=== PATIENT | female | born 1965 | race Caucasian/White ===

== ENCOUNTER 2019-03-19 14:41 | Emergency (ER) | payer SELFPAY ==
[2019-03-19 15:08] VITALS: BP 133/86; PULSE 89; RESP 20; TEMP 36.8; O2SAT 99
--- NOTE | 2019-03-19 15:26 | ED.NAVMDI ---
HPI - Nausea/Vomiting/Diarrhea General Chief complaint: Nausea/Vomiting/Diarrhea Stated complaint: abd pain/Nausea/Vomiting Time Seen by Provider: 03/19/19 15:26 Source: patient Mode of arrival: ambulatory Limitations: no limitations History of Present Illness HPI Narrative: Patient presents with nausea that started last night. Patient states she had emesis last night and 1 today. Denies one episode of diarrhea. Patient also reports generalized abdominal pain. Patient staes she is able to tolerate po liquids well. no blood in emesis or stool. Patient states she missed work today due to the nausea and needs a work note. MD elicited complaint: nausea, vomiting and diarrhea Onset (ago): day(s) Description of vomiting: watery Description of diarrhea: semi-solid Associated nausea: No Associated abdominal pain: No Related Data Home Medications Medication Instructions Recorded Confirmed pantoprazole 40 mg PO BID 03/19/19 03/19/19 Allergies Allergy/AdvReac Type Severity Reaction Status Date / Time amoxicillin Allergy Intermediate rash Verified 03/19/19 15:19 Review of Systems Review of Systems: Narrative: CONSTITUTIONAL: Denies fever, chills, or sweats. EYES: Denies visual changes, redness, or discharge. ENT: Denies rhinorrhea, congestion, sore throat, or otalgia. CARDIOVASCULAR: Denies chest pain, palpitations, or edema. RESPIRATORY: Denies cough or dyspnea. GASTROINTESTINAL:reports generalized abdominal pain, nausea, vomiting, or diarrhea. GENITOURINARY: Denies dysuria or hematuria. SKIN: Denies rash or itching. MUSCULOSKELETAL: Denies back pain, joint pain, or myalgia. NEUROLOGIC: Denies headache, numbness, or weakness. PSYCHIATRIC: Denies anxiety or depression. PMFSH Social History Social History Smoking status: Never smoker Gender identity (if verbalized by the patient): Female Comments At time of signature, agree with nursing past medical, surgical, social and family history. There is no relevant family history pertinent to the presenting complaint Exam Narrative: Exam Narrative: GENERAL: Well-appearing, well-nourished, and in no acute distress. HEAD: Normocephalic, atraumatic. EYES: PERRLA and EOMI. ENT: Nares clear, no rhinorrhea or epistaxis. Mucous membranes moist. NECK: Supple. CHEST: Clear to auscultation. No respiratory distress. HEART: Regular rate and rhythm. No murmur heard. Normal peripheral pulses. ABDOMEN: Soft, nontender, nondistended, normal active bowel sounds. EXTREMITIES: Normal range of motion. No edema. SKIN: Warm, dry, no rash. NEURO: No focal deficits. Alert and oriented x3. [place] Coma Scale Eye Opening: Spontaneous 4 [place] Coma Scale Motor: Obeys Commands 6 [place] Coma Scale Verbal: Oriented 5 [place] Coma Scale Total 15 Course Vital Signs Vital signs: Vital Signs Temperature 36.8 C 03/19/19 15:08 Pulse Rate 89 03/19/19 15:08 Respiratory Rate 20 03/19/19 15:08 Blood Pressure 133/86 03/19/19 15:08 Pulse Oximetry 99 03/19/19 15:08 Temperature 36.8 C 03/19/19 15:08 Pulse Rate 89 03/19/19 15:08 Respiratory Rate 03/19/19 15:08 Blood Pressure 133/86 03/19/19 15:08 Pulse Oximetry 99 03/19/19 15:08 Please NAI schedule a followup visit with your personal physician for further evaluation and treatment. Including recheck and discussion of your blood pressure. If your symptoms persist, change or worsen significantly before you can contact your personal physician then please, without delay, go to the emergency department for further evaluation states feels much better after zofran able to tolerate po liquids well and is ready to go home. MDM - Nausea/Vomiting/Diarrhea Differential Diagnosis Differential diagnosis: Likely traveler's diarrhea, food poisoning and gastroenteritis Critical Care Time Critical Care Time Critical Care Time: No Discharge Plan Discharge Clinical Impressi
== END 2019-03-19 15:55 | disposition home or self-care (01) ==
PROVIDERS: Emergency Provider Nurse Practitioner Family
DX: K52.9 Noninfective gastroenteritis and colitis, unspecified (principal); R11.2 Nausea with vomiting, unspecified
CPT/HCPCS: 99213; G0463

== ENCOUNTER 2019-03-21 12:00 | Emergency (ER) | payer SELFPAY ==
[2019-03-21 12:09] VITALS: BP 149/88; PULSE 72; RESP 14; TEMP 36.6; O2SAT 100
--- NOTE | 2019-03-21 12:14 | ED.WOUNDLAC ---
HPI - Wound/Laceration General Chief Complaint: Wound/Laceration Stated Complaint: finger lac Time Seen by Provider: 03/21/19 12:14 Source: patient and RN notes reviewed History of Present Illness HPI narrative: Patient is a 53-year-old female presents the urgent care with complaints of a laceration to the right finger. Patient states that it occurred approximately 30 to 40 minutes ago. Patient states that she had it on a metal [place] on her trailer. Patient states that she does need a tetanus shot. No other acute complaints. No acute distress noted. Patient had a plan of care. Related Data Home Medications Medication Instructions Recorded Confirmed pantoprazole 40 mg PO BID 03/19/19 03/21/19 Allergies Allergy/AdvReac Type Severity Reaction Status Date / Time amoxicillin Allergy Intermediate rash Verified 03/21/19 12:15 Review of Systems Review of Systems: Narrative: CONSTITUTIONAL: Denies fever, chills, or sweats. EYES: Denies visual changes, redness, or discharge. ENT: Denies rhinorrhea, congestion, sore throat, or otalgia. CARDIOVASCULAR: Denies chest pain, palpitations, or edema. RESPIRATORY: Denies cough or dyspnea. GASTROINTESTINAL: Denies abdominal pain, nausea, vomiting, or diarrhea. GENITOURINARY: Denies dysuria or hematuria. SKIN: Reports of a laceration to the right index finger MUSCULOSKELETAL: Denies back pain, joint pain, or myalgia. NEUROLOGIC: Denies headache, numbness, or weakness. PMFSH Social History Social History Smoking status: Never smoker Gender identity (if verbalized by the patient): Female Comments At the time of my signature, I reviewed and agree with the nursing past medical, surgical, social, and family history. There is no relevant family history pertinent to the patient complaint. Exam Narrative: Exam Narrative: GENERAL: This is a well-nourished, well-developed patient, in no apparent distress. HEAD: normocephalic, atraumatic. EYES: PERRL. Sclera clear/white. Vision is grossly intact. EARS: External ears normal NOSE: External nose normal with no obvious nasal discharge THROAT: Mucous membranes moist NECK: Neck supple CARDIOVASCULAR: Regular rate and rhythm SKIN: 1 cm linear laceration to the distal end of the dorsal aspect of the right index finger. Warm, intact with no suspicious lesions or rash, good texture and turgor. NEURO: awake, alert, and oriented to person, place and time. There were no obvious focal neurologic abnormalities. EXTREMITIES: No clubbing, cyanosis, or edema. Upper right extremity capillary refill less than 2 seconds. Course Vital Signs Vital signs: Vital Signs Temperature 98 F 03/21/19 12:09 Pulse Rate 72 03/21/19 12:09 Respiratory Rate 14 03/21/19 12:09 Blood Pressure 149/88 H 03/21/19 12:09 Pulse Oximetry 100 03/21/19 12:09 Temperature 98 F 03/21/19 12:09 Pulse Rate 72 03/21/19 12:09 Respiratory Rate 14 03/21/19 12:09 Blood Pressure 149/88 H 03/21/19 12:09 Pulse Oximetry 100 03/21/19 12:09 Reviewed?patient is informed that they may have pre-hypertension or hypertension based on a blood pressure reading in the department. I recommend the patient call the primary care provider listed on their discharge instructions or a physician of their choice this week to arrange follow-up for further evaluation of possible pre-hypertension or hypertension. Procedures Laceration Laceration 1: Site: upper extremity Side (If applicable): right (Right index finger) Description: linear ====== Skin Level ====== Skin layer closed with: dermabond and steri strips ====== Subcutaneous Layer ====== ====== Muscle Layer ====== ====== Tendon Layer ====== Dressing: Wound cleansed with [employer] and normal saline. Dermabond placed over the laceration. And Steri-Strips. MDM - Wound/Laceration MDM Narrative Medical decision
[2019-03-21] MEDS: TETANUS,DIPHTHERIA,AC PERTUSSIS ADULT 0.5 ML (ADACEL) IM (12:24)
== END 2019-03-21 12:44 | disposition home or self-care (01) ==
PROVIDERS: Emergency Provider Nurse Practitioner Family
DX: S61.210A Laceration without foreign body of right index finger without damage to nail, initial encounter (principal); W22.8XXA Striking against or struck by other objects, initial encounter; Z23 Encounter for immunization
CPT/HCPCS: 12001; 90471; 90715; 99212; G0463

== ENCOUNTER 2019-04-17 09:31 | Emergency (ER) | payer SELFPAY ==
[2019-04-17 09:43] VITALS: BP 136/78; PULSE 70; RESP 16; TEMP 37.4; O2SAT 99
--- NOTE | 2019-04-17 11:00 | ED.SKABFB ---
HPI - Skin/Abscess/Foreign Bdy General Chief complaint: Skin/Abscess/Foreign Body Stated complaint: breaking out all over Time Seen by Provider: 04/17/19 11:00 Source: patient and RN notes reviewed Mode of arrival: ambulatory Limitations: no limitations History of Present Illness HPI narrative: 53 year old female who presents to express care with complaint of noting red bumps on her arms, back of neck and right shoulder yesterday. Patient states that area are itchy and she has taken Benadryl for the itching with minimal relief. Patient denies any new foods, medications, bath soap, lotion, or any new pets, states that daughter did some laundry and changed laundry detergent. Patient denies any difficulty with swallowing or any difficulty with her breathing. MD complaint: rash Onset (ago): day(s) (1) Tetanus up to date: yes Location: neck, LUE (left shoulder also) and RUE Severity: mild Severity scale (1-10): 3 Quality: other (itchy) Pain Consistency: constant Relieving factors: none Exacerbating factors: movement Context: other (laundry soap) Associated symptoms: itching Treatments prior to arrival: Benadryl Related Data Allergies Allergy/AdvReac Type Severity Reaction Status Date / Time amoxicillin Allergy Intermediate rash Verified 04/17/19 10:01 Review of Systems Review of Systems: Narrative: CONSTITUTIONAL: Denies fever, chills, or sweats. EYES: Denies visual changes, redness, or discharge. ENT: Denies rhinorrhea, congestion, sore throat, or otalgia. CARDIOVASCULAR: Denies chest pain, palpitations, or edema. RESPIRATORY: Denies cough or dyspnea. GASTROINTESTINAL: Denies abdominal pain, nausea, vomiting, or diarrhea. GENITOURINARY: Denies dysuria or hematuria. SKIN: Positive rash to arms. back of neck, left shoulder with itching. MUSCULOSKELETAL: Denies back pain, joint pain, or myalgia. NEUROLOGIC: Denies headache, numbness, or weakness. PSYCHIATRIC: Denies anxiety or depression. All systems reviewed & are unremarkable except as noted in HPI and below PMFSH Past Medical History Medical History (Updated 04/18/19 @ 00:01 by Justin Hair) Anxiety and depression GERD (gastroesophageal reflux disease) Kidney stone Surgical History Surgical History (Updated 04/17/19 @ 11:11 by Antonina Hopson NP) H/O: hysterectomy Hx of appendectomy Hx of cholecystectomy Social History Social History Smoking status: Never smoker Gender identity (if verbalized by the patient): Female Comments At time of signature, agree with nursing past medical, social history. There is no relevant family history pertinent to the presenting complaint Exam Narrative: Exam Narrative: GENERAL: Well-appearing, well-nourished, and in no acute distress. HEAD: Normocephalic, atraumatic. EYES: PERRLA and EOMI. ENT: Nares clear, no rhinorrhea or epistaxis. Mucous membranes moist.TM's normal with good light reflex, throat pink with no swelling or lesions NECK: Supple.no lymphadenopathy CHEST: Clear to auscultation. No respiratory distress.SAO2 99% on room air HEART: Regular rate and rhythm. No murmur heard. Normal peripheral pulses. ABDOMEN: Soft, nontender, nondistended, normal active bowel sounds. EXTREMITIES: Normal range of motion. No edema. SKIN: Warm, dry, red raised scattered macular papular rash with no pustular formation has irritated areas with scratching, noted on forearms, neck and left shoulder, denies any burning to skin rash states itching NEURO: No focal deficits. Alert and oriented x3. Course Vital Signs Vital signs: Vital Signs Temperature 37.4 C 04/17/19 09:43 Pulse Rate 70 04/17/19 09:43 Respiratory Rate 16 04/17/19 09:43 Blood Pressure 136/78 04/17/19 09:43 Pulse Oximetry 99 04/17/19 09:43 Temperature 37.4 C 04/17/19 09:43 Pulse Rate 70 04/17/19 09:43 Respiratory Rate 16 04/17/19 09:43 Blood Pressure 136/78 04/17/19 09:43 Pulse
== END 2019-04-17 11:24 | disposition home or self-care (01) ==
PROVIDERS: Emergency Provider Registered Nurse
DX: L25.9 Unspecified contact dermatitis, unspecified cause (principal); K21.9 Gastro-esophageal reflux disease without esophagitis; R01.1 Cardiac murmur, unspecified
CPT/HCPCS: 99213; G0463

== ENCOUNTER 2019-06-11 14:01 | Emergency (ER) | payer MEDICAID, SELFPAY ==
[2019-06-11 14:17] VITALS: BP 140/85; PULSE 79; RESP 18; TEMP 36.6; O2SAT 98
--- NOTE | 2019-06-11 14:23 | ED.URI ---
HPI - URI/Sore Throat General Chief Complaint: Upper Respiratory Infection Stated Complaint: wheezing/runny nose/headache Time Seen by Provider: 06/11/19 14:23 Source: patient and RN notes reviewed History of Present Illness HPI Narrative: Patient is a 53-year-old female presents the urgent care with complaints of 1 day history of cough, congestion, runny nose, headaches. Patient states that she does have a history of pneumonia but currently denies any fevers or shortness of breath. 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 Patient has not taken anything with the exception of ibuprofen for the headache. Patient does not have any history of asthma and states she is not a smoker. Denies any fever, chills, nausea, vomiting. No other acute complaints. No acute distress noted. Patient read the plan of care. Related Data Home Medications Medication Instructions Recorded Confirmed esomeprazole magnesium 40 mg PO DAILY 06/11/19 06/11/19 Allergies Allergy/AdvReac Type Severity Reaction Status Date / Time amoxicillin Allergy Intermediate rash Verified 04/17/19 10:01 Review of Systems Review of Systems: Narrative: CONSTITUTIONAL: Denies fever, chills, or sweats. EYES: Denies visual changes, redness, or discharge. ENT: Denies sore throat, or otalgia. Reports of rhinorrhea and sinus pressure CARDIOVASCULAR: Denies chest pain, palpitations, or edema. RESPIRATORY: Reports of nonproductive cough and congestion GASTROINTESTINAL: Denies abdominal pain, nausea, vomiting, or diarrhea. GENITOURINARY: Denies dysuria or hematuria. SKIN: Denies rash or itching. MUSCULOSKELETAL: Denies back pain, joint pain, or myalgia. NEUROLOGIC: Denies headache, numbness, or weakness. All other systems reviewed are negative, except as documented in HPI. [facility] Past Medical History Medical History (Updated 06/11/19 @ 14:31 by ANALISA Piedra) Anxiety and depression GERD (gastroesophageal reflux disease) Kidney stone Surgical History Surgical History (Updated 04/17/19 @ 11:11 by Antonina Hopson NP) H/O: hysterectomy Hx of appendectomy Hx of cholecystectomy Social History Social History Smoking status: Never smoker Gender identity (if verbalized by the patient): Female Comments At the time of my signature, I reviewed and agree with the nursing past medical, surgical, social, and family history. There is no relevant family history pertinent to the patient complaint. Exam Narrative: Exam Narrative: GENERAL: This is a well-nourished, well-developed patient, in no apparent distress. HEAD: normocephalic, atraumatic. EYES: PERRL. Sclera clear/white. Vision is grossly intact. EARS: External ears normal, auditory canals clear and without drainage, TMs normal without perforation. Hearing grossly intact. NOSE: External nose normal with no obvious nasal discharge, nares without redness, clear rhinorrhea. THROAT: Mucous membranes moist, posterior pharynx clear. Mild postnasal drainage NECK: Neck supple CARDIOVASCULAR: Regular rate and rhythm without murmurs, gallops, or rubs. RESPIRATORY: Clear to auscultation. Breath sounds equal bilaterally. No wheezes, rales, or rhonchi. SKIN: warm, intact with no suspicious lesions or rash, good texture and turgor. NEURO: awake, alert, and oriented to person, place and time. There were no obvious focal neurologic abnormalities. EXTREMITIES: No clubbing, cyanosis, or edema. Course Vital Signs Vital signs: Vital Signs Temperature 97.9 F 06/11/19 14:17 Pulse Rate 79 06/11/19 14:17 Respiratory Rate 18 06/11/19 14:17 Blood Pressure 140/85 06/11/19 14:17 Pulse Oximetry 98 06/11/19 14:17 Temperature 97.9 F 06/11/19 14:17 Pulse Rate 79 06/11/19 14:17 Respiratory Rate 18 06/11/19 14:17 Blood Pressure 140/85 06/11/19 14:17 Pulse Oxim
== END 2019-06-11 14:35 | disposition home or self-care (01) ==
PROVIDERS: Emergency Provider Nurse Practitioner Family
DX: J06.9 Acute upper respiratory infection, unspecified (principal); R05 Cough; K21.9 Gastro-esophageal reflux disease without esophagitis; Z87.442 Personal history of urinary calculi
CPT/HCPCS: 99211; G0463

== ENCOUNTER 2019-09-24 15:26 | Emergency (ER) | payer BC, SELFPAY ==
--- NOTE | ~2019-09-24 | XR_ITS ---
EXAMINATION: XR foot RT min 3V EXAM DATE: 09/24/2019 16:02 INDICATION: Initial encounter following injury, with pain of the right foot, 4th and 5th toes. TECHNIQUE: Right foot dorsoplantar, lateral and oblique projections obtained and reviewed. There is no prior study for comparison. FINDINGS: Right metatarsal bones unremarkable. There is probably an acute closed posttraumatic nond isplaced fracture at the base of the right 5th proximal phalanx extending into the metatarsophalangea l joint. No other suspicious findings. IMPRESSION: Probable right 5th proximal phalangeal base fracture. Reviewed, dictated and finalized at location A.
--- NOTE | 2019-09-24 15:36 | ED.GENADULT ---
HPI - General Adult General Chief complaint: Extremity Injury, Lower Stated complaint: Toe Injury Time Seen by Provider: 09/24/19 15:48 Source: patient Mode of arrival: ambulatory Limitations: no limitations History of Present Illness HPI narrative: 53-year-old female patient presents to the [facility] with complaints of right pinky toe pain. Patient states that she hit her pinky toe on her metal bed frame last night. Patient states that she iced it all night and then today tried to put on her shoes and make sure that they were very loose fitting. Patient denies taking any Tylenol ibuprofen. Patient states it does hurt when putting pressure on the right foot. Patient states she has a little bit of numbness and tingling to the fourth and fifth toe on the right foot. Related Data Home Medications Medication Instructions Recorded Confirmed famotidine 40 mg PO DAILY 09/24/19 09/24/19 Allergies Allergy/AdvReac Type Severity Reaction Status Date / Time amoxicillin Allergy Unknown hives Verified 09/24/19 15:48 Review of Systems Review of Systems: Narrative: CONSTITUTIONAL: Denies fever, chills, or sweats. EYES: Denies visual changes, redness, or discharge. ENT: Denies rhinorrhea, congestion, sore throat, or otalgia. CARDIOVASCULAR: Denies chest pain, palpitations, or edema. RESPIRATORY: Denies cough or dyspnea. GASTROINTESTINAL: Denies abdominal pain, nausea, vomiting, or diarrhea. GENITOURINARY: Denies dysuria or hematuria. SKIN: Denies rash or itching. MUSCULOSKELETAL: Denies back pain, joint pain, or myalgia. Positive right foot and right pinky toe pain NEUROLOGIC: Denies headache, numbness, or weakness. PSYCHIATRIC: Denies anxiety or depression. PMFSH Comments At the time of my signature I agree with nursing past medical history, surgical, social, and family history. There is no relevant family history pertinent to the presenting complaint. Exam Narrative: Exam Narrative: GENERAL: Well-appearing, well-nourished, and in no acute distress. HEAD: Normocephalic, atraumatic. EYES: PERRLA and EOMI. ENT: Nares clear, no rhinorrhea or epistaxis. Mucous membranes moist. NECK: Supple. No lymphadenopathy CHEST: Clear to auscultation. No respiratory distress. HEART: Regular rate and rhythm. No murmur heard. Normal peripheral pulses. ABDOMEN: Soft, nontender, nondistended, normal active bowel sounds. EXTREMITIES: Patient able to bear weight and ambulate with increased pain to right foot. No surface trauma, ecchymosis, erythema, lesions, ulcers or break in skin integrity. The R foot is without obvious asymmetry or deformity when compared to the L foot. No bony step-off, tender to palpation over the fourth and fifth on the right foot, tenderness on palpation over the midfoot, no pain noted on palpation to the hindfoot or sole. Normal plantar/dorsiflexion, inversion/eversion. Distal motor and neurovascular status are intact SKIN: Warm, dry, no rash. NEURO: No focal deficits. Alert and oriented x3. Course Reevaluation(s) Reevaluation #1: Reevaluated patient after her x-ray resulted. Discussed with her that there is a small little fracture noted to the fifth proximal phalangeal base. Discussed with patient our plan of care is to go ahead and faustino tape the toes we will put her in a postop shoe. Discussed with patient that I will take her off work for the next 3 days which is the maximum allowed to give if she needs more time off or to return with restrictions she needs to see her primary doctor. Discussed with her I did put Dr. Barrera's name down as a possible referral if she feels that the pain is getting worse that she can follow-up with Ortho as needed. Patient verbalized understanding of this denies any other questions or concerns at this time. Date: 09/24/19 Time: 16:19 Vital Signs Vital signs: Vital Signs Temperature 36.7 C 09/24/19 15:40 Pulse Rate 75 09/24/19 15:40 Respiratory Rate 20 09/24/19 15:40 Blood Pressure 1
[2019-09-24 15:40] VITALS: BP 135/68; PULSE 75; RESP 20; TEMP 36.7; O2SAT 98
== END 2019-09-24 16:20 | disposition home or self-care (01) ==
PROVIDERS: Emergency Provider Nurse Practitioner Family
DX: S92.501A Displaced unspecified fracture of right lesser toe(s), initial encounter for closed fracture (principal); W22.03XA Walked into furniture, initial encounter
CPT/HCPCS: 73630; 99214; G0463

== ENCOUNTER 2019-11-08 08:35 | Emergency (ER) | payer BC, SELFPAY ==
[2019-11-08 08:44] VITALS: BP 120/72; PULSE 67; RESP 20; TEMP 37.4; O2SAT 99
--- NOTE | 2019-11-08 09:00 | ED.NAVMDI ---
HPI - Nausea/Vomiting/Diarrhea General Chief complaint: Nausea/Vomiting/Diarrhea Stated complaint: vomitting/diarrhea Time Seen by Provider: 11/08/19 09:00 Source: patient and RN notes reviewed History of Present Illness HPI Narrative: Patient is a 54-year-old female who presents the urgent care with complaints of vomiting and diarrhea. Patient states that she is severely nauseous but denies of any abdominal pain. States that she ate at a [employer] restaurant last night and within 45 minutes it was coming out of both ends . Patient states she has taken Imodium this morning but was unable to go to work due to the vomiting. Denies of any known fever. No other acute complaints. No acute distress noted. Patient aware of the plan of care. Some parts of this dictation were generated by voice recognition software and may contain typographical and/or grammatical inaccuracies. Related Data Home Medications Medication Instructions Recorded Confirmed pantoprazole [Protonix] 40 mg PO BID 11/08/19 11/08/19 Allergies Allergy/AdvReac Type Severity Reaction Status Date / Time amoxicillin Allergy Unknown hives Verified 11/08/19 08:52 Review of Systems Review of Systems: Narrative: CONSTITUTIONAL: Denies fever, chills, or sweats. EYES: Denies visual changes, redness, or discharge. ENT: Denies rhinorrhea, congestion, sore throat, or otalgia. CARDIOVASCULAR: Denies chest pain, palpitations, or edema. RESPIRATORY: Denies cough or dyspnea. GASTROINTESTINAL: Reports of nausea, vomiting and diarrhea without abdominal pain GENITOURINARY: Denies dysuria or hematuria. SKIN: Denies rash or itching. MUSCULOSKELETAL: Denies back pain, joint pain, or myalgia. NEUROLOGIC: Denies headache, numbness, or weakness. All other systems reviewed are negative, except as documented in HPI. PMFSH Comments At the time of my signature, I reviewed and agree with the nursing past medical, surgical, social, and family history. There is no relevant family history pertinent to the patient complaint. Exam Narrative: Exam Narrative: GENERAL: This is a well-nourished, well-developed patient, in no apparent distress. HEAD: normocephalic, atraumatic. EYES: PERRL. Sclera clear/white. Vision is grossly intact. EARS: External ears normal NOSE: External nose normal with no obvious nasal discharge, nares without redness, no rhinorrhea. THROAT: Mucous membranes moist NECK: Neck supple CARDIOVASCULAR: Regular rate and rhythm without murmurs, gallops, or rubs. RESPIRATORY: Clear to auscultation. Breath sounds equal bilaterally. No wheezes, rales, or rhonchi. GASTROINTESTINAL: Abdomen soft, non-tender, nondistended. Bowel sounds are hypoactive. SKIN: warm, intact with no suspicious lesions or rash, good texture and turgor. NEURO: awake, alert, and oriented to person, place and time. There were no obvious focal neurologic abnormalities. EXTREMITIES: No clubbing, cyanosis, or edema. Course Vital Signs Vital signs: Vital Signs Temperature 99.3 F 11/08/19 08:44 Pulse Rate 67 11/08/19 08:44 Respiratory Rate 11/08/19 08:44 Blood Pressure 120/72 11/08/19 08:44 Pulse Oximetry 99 11/08/19 08:44 Temperature 99.3 F 11/08/19 08:44 Pulse Rate 67 11/08/19 08:44 Respiratory Rate 11/08/19 08:44 Blood Pressure 120/72 11/08/19 08:44 Pulse Oximetry 99 11/08/19 08:44 Reviewed MDM - Nausea/Vomiting/Diarrhea MDM Narrative Medical decision making narrative: Advised the patient to use Pepto-Bismol and Imodium as needed [id number]. Use Zofran as needed for nausea. Follow a brat diet for the next 2 to 3 days until normal food as tolerated. Drink clear liquids such as water and clear soda. If you develop any increase in symptoms associated with abdominal pain and fever?go to the emergency room. Follow-up with your PCP within 2 to 5 days or for worsening symptoms or failure to improve. Differential Diagnosis Differential diagnosis: Likely t
== END 2019-11-08 09:13 | disposition home or self-care (01) ==
PROVIDERS: Emergency Provider Nurse Practitioner Family; PCP Nurse Practitioner Adult Health
DX: R11.2 Nausea with vomiting, unspecified (principal); R19.7 Diarrhea, unspecified; K21.9 Gastro-esophageal reflux disease without esophagitis
CPT/HCPCS: 99213; G0463

== ENCOUNTER 2019-12-16 10:19 | Emergency (ER) | payer OTHER, BC, SELFPAY ==
[2019-12-16 10:26] VITALS: BP 106/77; PULSE 83; RESP 18; TEMP 37.4; O2SAT 99
--- NOTE | 2019-12-16 11:09 | ED.FEMALEGU ---
HPI - Female Genitourinary General Chief complaint: Urogenital-Female Stated complaint: back pain/abdominal pain/frequent urinatoin Time Seen by Provider: 12/16/19 10:56 Source: patient and RN notes reviewed Mode of arrival: ambulatory Limitations: no limitations History of Present Illness HPI Narrative: Patient presents today complaining of right-sided low back pain, frequency, urgency, dysuria, and suprapubic pain since yesterday. States her symptoms are similar to when she had a kidney stone. Denies nausea, vomiting, fever. She has been taking ibuprofen with mild relief. MD elicited complaint: dysuria Related Data Allergies Allergy/AdvReac Type Severity Reaction Status Date / Time amoxicillin Allergy Unknown hives Verified 12/16/19 10:50 Review of Systems Review of Systems: Narrative: CONSTITUTIONAL: Denies body aches, fever, chills, or sweats. EYES: Denies visual changes, redness, or discharge. ENT: Denies rhinorrhea, congestion, sore throat, or otalgia. CARDIOVASCULAR: Denies chest pain, palpitations, or edema. RESPIRATORY: Denies cough or dyspnea. GASTROINTESTINAL: Denies nausea, vomiting, or diarrhea. GENITOURINARY: + Dysuria, frequency, urgency, right flank pain, suprapubic pain SKIN: Denies rash, itching, or wounds. MUSCULOSKELETAL: Denies back pain, joint pain, or myalgia. NEUROLOGIC: Denies headache, numbness, tingling, or weakness. PSYCH: Denies depression or anxiety. [facility] Past Medical History Medical History (Updated 12/16/19 @ 11:12 by Trish Oliver, ANALISA, ) Anxiety and depression GERD (gastroesophageal reflux disease) Kidney stone Surgical History Surgical History H/O: hysterectomy Hx of appendectomy Hx of cholecystectomy Social History Social History Smoking status: Never smoker Gender identity (if verbalized by the patient): Female Comments At time of signature, I have reviewed and agree with nursing past medical, surgical, social and family history unless otherwise noted. Please see nursing chart for further information. There is no relevant family history pertinent to the presenting complaint Exam Narrative: Exam Narrative: GENERAL: Well-appearing, well-nourished, and in mild pain distress. HEAD: Normocephalic, atraumatic. EYES: EOMI. No redness or drainage. Conjunctivae normal. ENT: Mucous membranes pink and moist. NECK: Normal AROM. Supple. No lymphadenopathy. CHEST: No respiratory distress. Clear to auscultation. HEART: Regular rate and rhythm. No murmur appreciated. Normal peripheral pulses. ABDOMEN: Soft, nondistended, normal active bowel sounds. Suprapubic tenderness.-CVAT. MUSCULOSKELETAL: Lower lumbar spinal tenderness. Right lumbar paraspinal muscle point tenderness. EXTREMITIES: Normal range of motion. No edema. SKIN: Warm, dry, no rash. Capillary refill normal. Normal skin turgor. NEURO: No focal deficits. Alert and oriented x3. Gait steady. PSYCH: Normal affect. No signs of depression or anxiety. Course Vital Signs Vital signs: Vital Signs Temperature 99.4 F 12/16/19 10:26 Pulse Rate 83 12/16/19 10:26 Respiratory Rate 18 12/16/19 10:26 Blood Pressure 106/77 12/16/19 10:26 Pulse Oximetry 99 12/16/19 10:26 Temperature 99.4 F 12/16/19 10:26 Pulse Rate 83 12/16/19 10:26 Respiratory Rate 18 12/16/19 10:26 Blood Pressure 106/77 12/16/19 10:26 Pulse Oximetry 99 12/16/19 10:26 Reviewed MDM - Female Genitourinary Differential Diagnosis Differential diagnosis: Likely urinary tract infection, vaginitis and other (Kidney stone, pyelonephritis, musculoskeletal back pain) Lab Data Attestation: I reviewed the patient's lab results. Labs: Urine Glucose Negative Reference Range: Negative Urine Bilirubin 1+
== END 2019-12-16 11:15 | disposition home or self-care (01) ==
PROVIDERS: Emergency Provider Nurse Practitioner; PCP Nurse Practitioner Adult Health
DX: N30.00 Acute cystitis without hematuria (principal); M54.5 Low back pain; K21.9 Gastro-esophageal reflux disease without esophagitis
CPT/HCPCS: 81003; 87086; 87088; 99213; G0463

== ENCOUNTER 2020-03-20 09:30 | Emergency (ER) | payer OTHER, BC, SELFPAY ==
--- NOTE | ~2020-03-20 | XR_ITS ---
EXAMINATION: XR lumbar spine 2-3V DATE: 03/20/2020 10:43 INDICATION: Bilateral low back pain post fall down stairs. TECHNIQUE: Anteroposterior and lateral views of the lumbar spine, and cone-down lateral view of the l umbosacral junction were obtained. COMPARISON: None. FINDINGS: Alignment is normal. Minimal chronic-appearing, likely physiologic anterior wedging at T12 and L1. Mi ld to moderate disc height loss at L5-S1. Mild disc height loss at T9-T10 through T11-T12. Lumbar dis c heights are relatively preserved with small anterior endplate osteophytes at T12-L1 through L3-L4. Mild to moderate lower lumbar predominant facet osteoarthritis. Sacral arches are intact. Mild right and minimal left sacroiliac osteoarthritis. Cholecystectomy clips in the right upper quadrant. Visual ized lung bases are clear. IMPRESSION: 1. Mild lumbar and lower thoracic spondylosis. No acute osseous abnormality. Reviewed, dictated and finalized at location B. [facility]IDE
[2020-03-20 09:56] VITALS: BP 147/88; PULSE 74; RESP 16; TEMP 36.8; O2SAT 100
[2020-03-20 10:12] VITALS: BP 147/88; PULSE 74; RESP 16; TEMP 36.8; O2SAT 100
--- NOTE | 2020-03-20 11:09 | ED.BACK ---
HPI - Back Pain/Injury General Chief Complaint: Back Pain/Injury Stated Complaint: back and right foot pain injury Time Seen by Provider: 03/20/20 10:10 Source: patient and RN notes reviewed Mode of arrival: ambulatory Limitations: no limitations History of Present Illness HPI Narrative: Patient presents today complaining of 4-day history of right foot pain along the dorsum of her foot. States pain increases with light touch to the foot, but pain decreases when she tightly wrapped her foot with the foot and ankle brace. Patient denies any injury. She does report some numbness and tingling to the fifth toe. She has applied some ice and heat and taken some ibuprofen. The ibuprofen provided some mild relief. Pain increases with walking. Currently rates her pain 9/10. This morning at 5:00 AM, patient bent down at home to touch the top of her foot, lost her balance and rolled down 12 carpeted stairs in her home, striking her lower back on the steps. Denies striking her head or loss of consciousness. Denies any neck pain, rib pain, chest pain or shortness of breath. She is complaining of low back pain. Denies numbness or tingling in the extremities. Denies radiation of the pain. Denies numbness or tingling in the genitals. Denies any loss of bowel or bladder control. MD elicited complaint: back pain and other (Right foot pain) Related Data Home Medications Medication Instructions Recorded Confirmed dexlansoprazole [Dexilant] 60 mg PO DAILY 03/20/20 03/20/20 Allergies Allergy/AdvReac Type Severity Reaction Status Date / Time amoxicillin Allergy Unknown hives Verified 03/20/20 10:10 Review of Systems Review of Systems: Narrative: CONSTITUTIONAL: Denies body aches, fever, chills, or sweats. EYES: Denies visual changes, redness, or discharge. ENT: Denies rhinorrhea, congestion, sore throat, or otalgia. CARDIOVASCULAR: Denies chest pain, palpitations, or edema. RESPIRATORY: Denies cough or dyspnea. GASTROINTESTINAL: Denies abdominal pain, nausea, vomiting, or diarrhea. GENITOURINARY: Denies dysuria or hematuria. SKIN: Denies rash, itching, or wounds. MUSCULOSKELETAL: + Low back pain, right foot pain. NEUROLOGIC: Denies headache, or weakness.+ Numbness and tingling to the right fifth toe PSYCH: Denies depression or anxiety. [facility] Past Medical History Medical History (Updated 03/20/20 @ 11:12 by Trish Oliver, ANALISA, ) Anxiety and depression GERD (gastroesophageal reflux disease) Kidney stone Surgical History Surgical History H/O: hysterectomy Hx of appendectomy Hx of cholecystectomy Social History Social History Smoking status: Never smoker Gender identity (if verbalized by the patient): Female Comments At time of signature, I have reviewed and agree with nursing past medical, surgical, social and family history unless otherwise noted. Please see nursing chart for further information. There is no relevant family history pertinent to the presenting complaint Exam Narrative: Exam Narrative: GENERAL: Well-appearing, well-nourished, and in no acute distress. HEAD: Normocephalic, atraumatic. EYES: EOMI. PERRL. No redness or drainage. Conjunctivae normal. ENT: Mucous membranes pink and moist. NECK: Normal AROM. Supple. No lymphadenopathy. Nontender. CHEST: No respiratory distress. MUSCULOSKELETAL: Bony tenderness to the lumbar spine. Bilateral lumbar paraspinal muscle tenderness. No ecchymosis, deformity, step-off. EXTREMITIES: ~4x5cm area of mild localized erythema to the dorsum of the right foot with somewhat well defined edges. No edema in the foot, ankle, or calf. This affected area if tender to light touch. No other portion of the foot is tender. The ankle and calf is nontender. Distal sensation is intact in toes 1 through 4, the patient has decreased sensation in toe #
== END 2020-03-20 11:16 | disposition home or self-care (01) ==
PROVIDERS: Emergency Provider Nurse Practitioner; PCP Nurse Practitioner Adult Health
DX: L03.115 Cellulitis of right lower limb (principal); S39.012A Strain of muscle, fascia and tendon of lower back, initial encounter; W10.9XXA Fall (on) (from) unspecified stairs and steps, initial encounter; K21.9 Gastro-esophageal reflux disease without esophagitis
CPT/HCPCS: 72100; 99213; G0463

== ENCOUNTER 2020-07-31 11:56 | Emergency (ER) | payer OTHER, BC, SELFPAY ==
--- NOTE | 2020-07-31 12:04 | ED.URI ---
HPI - URI/Sore Throat General Chief Complaint: Upper Respiratory Infection Stated Complaint: Throwing Up Time Seen by Provider: 07/31/20 12:04 Source: patient and RN notes reviewed History of Present Illness HPI Narrative: Patient is a 54-year-old female who presents the urgent care with complaints of sore throat, nausea and vomiting. Patient states that it started yesterday and she took aspirin for a fever last night. Patient states that she took aspirin for her fever but denies of any other [id number] medication for her symptoms. States that her granddaughter was sick a few days ago with a stomach bug and was put on medication for something but is unsure if she had strep throat or not. Currently denies any abdominal pain or diarrhea. No other acute complaints. No acute distress noted. Patient aware of the plan of care. Some parts of this dictation were generated by voice recognition software and may contain typographical and/or grammatical inaccuracies. Related Data Home Medications Medication Instructions Recorded Confirmed dexlansoprazole [Dexilant] 60 mg PO DAILY 03/20/20 07/31/20 Allergies Allergy/AdvReac Type Severity Reaction Status Date / Time amoxicillin Allergy Unknown hives Verified 07/31/20 12:10 Review of Systems Review of Systems: Narrative: CONSTITUTIONAL: Denies fever, chills, or sweats. EYES: Denies visual changes, redness, or discharge. ENT: Reports of sore throat CARDIOVASCULAR: Denies chest pain, palpitations, or edema. RESPIRATORY: Denies cough or dyspnea. GASTROINTESTINAL: Reports of nausea and vomiting without abdominal pain or diarrhea GENITOURINARY: Denies dysuria or hematuria. SKIN: Denies rash or itching. MUSCULOSKELETAL: Denies back pain, joint pain, or myalgia. NEUROLOGIC: Denies headache, numbness, or weakness. All other systems reviewed are negative, except as documented in HPI. [facility] Past Medical History Medical History (Updated 07/31/20 @ 12:18 by ANALISA Piedra) Anxiety and depression GERD (gastroesophageal reflux disease) Kidney stone Surgical History Surgical History H/O: hysterectomy Hx of appendectomy Hx of cholecystectomy Social History Social History Smoking status: Never smoker Gender identity (if verbalized by the patient): Female Comments At the time of my signature, I reviewed and agree with the nursing past medical, surgical, social, and family history. There is no relevant family history pertinent to the patient complaint. Exam Narrative: Exam Narrative: GENERAL: This is a well-nourished, well-developed patient, in no apparent distress. HEAD: normocephalic, atraumatic. EYES: PERRL. Sclera clear/white. Vision is grossly intact. EARS: External ears normal, auditory canals clear and without drainage, TMs normal without perforation. Hearing grossly intact. NOSE: External nose normal with no obvious nasal discharge, nares without redness, no rhinorrhea. THROAT: Mucous membranes moist, moderate erythema noted posterior oropharynx with mild postnasal drainage NECK: Neck supple, non-tender without lymphadenopathy RESPIRATORY: Clear to auscultation. Breath sounds equal bilaterally. No wheezes, rales, or rhonchi. GASTROINTESTINAL: Abdomen soft, non-tender, nondistended. Bowel sounds are hyperactive. 1 episode of emesis with strep swab SKIN: warm, intact with no suspicious lesions or rash, good texture and turgor. NEURO: awake, alert, and oriented to person, place and time. There were no obvious focal neurologic abnormalities. EXTREMITIES: No clubbing, cyanosis, or edema. Course Vital Signs Vital signs: Vital Signs Temperature 97.9 F 07/31/20 12:06 Pulse Rate 85 07/31/20 12:06 Respiratory Rate 18 07/31/20 12:06 Blood Pressure 130/93 H 07/31/20 12:06 Pulse Oximetry 98 07/31/20 12:06 Temperature 97.9 F
[2020-07-31 12:06] VITALS: BP 130/93; PULSE 85; RESP 18; TEMP 36.6; O2SAT 98
== END 2020-07-31 12:20 | disposition home or self-care (01) ==
PROVIDERS: Emergency Provider Nurse Practitioner Family
DX: J02.9 Acute pharyngitis, unspecified (principal); R11.2 Nausea with vomiting, unspecified; K21.9 Gastro-esophageal reflux disease without esophagitis
CPT/HCPCS: 87081; 87880; 99213; G0463

== ENCOUNTER 2020-11-19 09:35 | Emergency (ER) | payer BC, SELFPAY ==
[2020-11-19 09:44] VITALS: BP 152/89; PULSE 82; RESP 20; TEMP 36.6; O2SAT 100
--- NOTE | 2020-11-19 09:44 | ED.URI ---
HPI - URI/Sore Throat General Stated Complaint: Cold symptoms Time Seen by Provider: 11/19/20 09:44 Source: patient and RN notes reviewed History of Present Illness HPI Narrative: Patient is a 55-year-old female who presents the urgent care with complaints of cold-like symptoms with runny nose, cough and congestion. Patient states that she has been taking DayQuil and NyQuil for the last 4 days but her cough has progressed. Patient has also been using albuterol for her intermittent shortness of breath. Patient states that her granddaughter recently had a cold as well. Patient has had Covid in the past but denies of any Covid vaccine. No other acute complaints. No acute distress noted. Patient aware of the plan of care. Some parts of this dictation were generated by voice recognition software and may contain typographical and/or grammatical inaccuracies. Related Data Home Medications Medication Instructions Recorded Confirmed dexlansoprazole [Dexilant] 60 mg PO DAILY 03/20/20 11/19/20 albuterol sulfate 2 puff INHALATION Q4H PRN 11/19/20 11/19/20 Allergies Allergy/AdvReac Type Severity Reaction Status Date / Time amoxicillin Allergy Unknown hives Verified 11/19/20 10:01 Review of Systems Review of Systems: CONSTITUTIONAL: Denies fever, chills, or sweats. EYES: Denies visual changes, redness, or discharge. ENT: Reports of rhinorrhea, congestion, postnasal drainage CARDIOVASCULAR: Denies chest pain, palpitations, or edema. RESPIRATORY: Reports of cough with intermittent dyspnea GASTROINTESTINAL: Denies abdominal pain, nausea, vomiting, or diarrhea. GENITOURINARY: Denies dysuria or hematuria. SKIN: Denies rash or itching. MUSCULOSKELETAL: Denies back pain, joint pain, or myalgia. NEUROLOGIC: Denies headache, numbness, or weakness. All other systems reviewed are negative, except as documented in HPI. [facility] Past Medical History Medical History (Updated 11/19/20 @ 10:04 by ANALISA Piedra) Anxiety and depression GERD (gastroesophageal reflux disease) Kidney stone Surgical History Surgical History H/O: hysterectomy Hx of appendectomy Hx of cholecystectomy Social History Social History Smoking status: Never smoker Gender identity (if verbalized by the patient): Female Comments At the time of my signature, I reviewed and agree with the nursing past medical, surgical, social, and family history. There is no relevant family history pertinent to the patient complaint. Exam Narrative: GENERAL: This is a well-nourished, well-developed patient, in no apparent distress. HEAD: normocephalic, atraumatic. EYES: PERRL. Sclera clear/white. Vision is grossly intact. EARS: External ears normal, auditory canals clear and without drainage, TMs normal without perforation. Hearing grossly intact. NOSE: External nose normal with no obvious nasal discharge, nares without redness, clear rhinorrhea. THROAT: Mucous membranes moist, posterior pharynx clear. Mild clear postnasal drainage NECK: Neck supple CARDIOVASCULAR: Regular rate and rhythm without murmurs, gallops, or rubs. RESPIRATORY: Clear to auscultation. Breath sounds equal bilaterally. No wheezes, rales, or rhonchi. Harsh nonproductive cough on exam SKIN: warm, intact with no suspicious lesions or rash, good texture and turgor. NEURO: awake, alert, and oriented to person, place and time. There were no obvious focal neurologic abnormalities. EXTREMITIES: No clubbing, cyanosis, or edema. Course Vital Signs Vital signs: Vital Signs Temperature 97.8 F 11/19/20 09:44 Pulse Rate 82 11/19/20 09:44 Respiratory Rate 20 11/19/20 09:44 Blood Pressure 152/89 H 11/19/20 09:44 Pulse Oximetry 100 11/19/20 09:44 Temperature 97.8 F 11/19/20 09:44 Pulse Rate 82 11/19/20 09:44 Respiratory Rate 20 11/19/20 09:44 Blood Pressure 1
== END 2020-11-19 10:05 | disposition home or self-care (01) ==
PROVIDERS: Emergency Provider Nurse Practitioner Family; PCP Family Medicine
DX: J06.9 Acute upper respiratory infection, unspecified (principal); K21.9 Gastro-esophageal reflux disease without esophagitis
CPT/HCPCS: 99213; G0463

== ENCOUNTER 2021-02-26 10:13 | Emergency (ER) | payer BC, SELFPAY ==
--- NOTE | 2021-02-26 10:20 | ED.URI ---
HPI - URI/Sore Throat General Chief Complaint: Upper Respiratory Infection Stated Complaint: Congestion/Cough Source: patient Mode of arrival: ambulatory Limitations: no limitations History of Present Illness HPI Narrative: 55-year-old female presented for complaint of shortness of breath with exertion associated with a postnasal drainage, productive cough with yellow sputum, endorses fever of 100.8 yesterday. Symptoms started about 2 days ago. She denies chest pain or heart racing, endorses chest tightness at times. She denies nausea, vomiting, diarrhea. She is taking her prescribed albuterol more often than she had been in the past. She is not vaccinated for Covid. She endorses sick contacts at home. She did take a negative home Covid test. MD elicited complaint: cough and sore throat Related Data Home Medications Medication Instructions Recorded Confirmed dexlansoprazole [Dexilant] 60 mg PO DAILY 03/20/20 02/26/21 albuterol sulfate 2 puff INHALATION Q4H PRN 11/19/20 02/26/21 Allergies Allergy/AdvReac Type Severity Reaction Status Date / Time amoxicillin Allergy Unknown hives Verified 02/26/21 10:28 Review of Systems Review of Systems: CONSTITUTIONAL: Denies malaise, chills, sweats, or fever. EYES: Denies visual changes, redness, or discharge. ENT: Reports rhinorrhea, congestion, sinus pain, otalgia and sore throat. CARDIOVASCULAR: Denies chest pain, palpitations, or edema. RESPIRATORY: Reports cough [place] GASTROINTESTINAL: Denies abdominal pain, nausea, vomiting, diarrhea SKIN: Denies rash or itching. MUSCULOSKELETAL: Denies myalgia. NEUROLOGIC: Denies headache. All systems reviewed & are unremarkable except as noted in HPI and below PMFSH Past Medical History Medical History (Updated 02/26/21 @ 11:07 by Tarah Warren APRN) Anxiety and depression GERD (gastroesophageal reflux disease) Kidney stone Surgical History Surgical History H/O: hysterectomy Hx of appendectomy Hx of cholecystectomy Social History Social History Smoking status: Never smoker Gender identity (if verbalized by the patient): Female Comments At time of signature, agree with nursing past medical, surgical, social and family history. There is no relevant family history pertinent to the presenting complaint Exam Narrative: GENERAL: Well-appearing, well-nourished, and in no acute distress. HEAD: Normocephalic EYES: PERRLA, conjunctivae clear ENT: Nares clear, turbinates edematous and erythematous, clear discharge. Mucous membranes moist. TM pearly castillo with dull light reflex bilaterally; no tragal tenderness. Oropharynx erythematous without lesions. no hoarseness, no trismus, uvula midline. NECK: Supple. No lymphadenopathy CHEST: Clear to auscultation, breath sounds equal. No wheezing, rhonchi, rales, or stridor. No respiratory distress, speaks in full sentences. HEART: Regular rate and rhythm. No murmur heard. SKIN: Warm, dry, no rash. NEURO: Alert and oriented x3. PSYCH: Normal mood and affect Course Course Emergency Course: POC covid Patient is aware of diagnosis, understands and agrees to treatment plan. Anticipatory guidance given. Patient agrees to follow-up as directed and is aware of reasons to seek care at the emergency department. Portions of this record may have been created with voice recognition software Level of Care: Express Care Visit Vital Signs Vital signs: Reviewed MDM - URI/Sore Throat MDM Narrative Medical decision making narrative: Differential diagnosis considered: Moran virus, strep pharyngitis, allergic rhinitis, upper respiratory tract infection, sinusitis, rhinosinusitis, nasopharyngitis. viral pharyngitis, otitis media, otitis externa, pneumonia, bronchitis, viral cough syndrome, viral syndrome, and influenza. Exam findings show no acute concerns or changes; patient is non-toxic ap
[2021-02-26 10:23] VITALS: BP 146/74; PULSE 85; RESP 20; TEMP 37.6; O2SAT 100
[2021-02-26 10:29] VITALS: BP 146/74; PULSE 85; RESP 20; TEMP 37.6; O2SAT 100
== END 2021-02-26 11:14 | disposition home or self-care (01) ==
PROVIDERS: Emergency Provider Nurse Practitioner Family
DX: J06.9 Acute upper respiratory infection, unspecified (principal); Z20.822 Contact with and (suspected) exposure to COVID-19; K21.9 Gastro-esophageal reflux disease without esophagitis
CPT/HCPCS: 87426; 99213; C9803; G0463

== ENCOUNTER 2021-03-17 10:23 | Emergency (ER) | payer BC, SELFPAY ==
--- NOTE | 2021-03-17 10:26 | ED.URI ---
HPI - URI/Sore Throat General Chief Complaint: Upper Respiratory Infection Stated Complaint: Ear Pain/Sore Throat/Cough Time Seen by Provider: 03/17/21 10:26 Source: patient and RN notes reviewed History of Present Illness HPI Narrative: Patient is a 55-year-old female who presents the urgent care with complaints of bilateral ear pain, sore throat, cough and nausea. Patient states that she has had a lot of Covid exposure. States that she has been Covid vaccinated. States that her symptoms started 2 weeks ago, got better, and then worsened within the last few days. Patient has been taking DayQuil, NyQuil and Benadryl. Patient is also complaining of a itchy rash to the right arm which she has been using calamine. No other acute complaints. No acute distress noted. Patient read the plan of care. Some parts of this dictation were generated by voice recognition software and may contain typographical and/or grammatical inaccuracies. Related Data Home Medications Medication Instructions Recorded Confirmed dexlansoprazole [Dexilant] 60 mg PO DAILY 03/20/20 03/17/21 albuterol sulfate 2 puff INHALATION Q4H PRN 11/19/20 03/17/21 Allergies Allergy/AdvReac Type Severity Reaction Status Date / Time amoxicillin Allergy Unknown hives Verified 03/17/21 10:34 Review of Systems Review of Systems: CONSTITUTIONAL: Denies fever, chills, or sweats. EYES: Denies visual changes, redness, or discharge. ENT: Reports of postnasal drainage, congestion and bilateral otalgia worse on the left CARDIOVASCULAR: Denies chest pain, palpitations, or edema. RESPIRATORY: Reports of cough without dyspnea GASTROINTESTINAL: Reports of nausea with 1 episode of vomiting without abdominal pain or diarrhea GENITOURINARY: Denies dysuria or hematuria. SKIN: Reports of an itchy rash to the right forearm MUSCULOSKELETAL: Denies back pain, joint pain, or myalgia. NEUROLOGIC: Denies headache, numbness, or weakness. All other systems reviewed are negative, except as documented in HPI. [facility] Past Medical History Medical History (Updated 03/17/21 @ 11:11 by ANALISA Piedra) Anxiety and depression GERD (gastroesophageal reflux disease) Kidney stone Surgical History Surgical History H/O: hysterectomy Hx of appendectomy Hx of cholecystectomy Social History Social History Smoking status: Never smoker Gender identity (if verbalized by the patient): Female Comments At the time of my signature, I reviewed and agree with the nursing past medical, surgical, social, and family history. There is no relevant family history pertinent to the patient complaint. Exam Narrative: GENERAL: This is a well-nourished, well-developed patient, in no apparent distress. HEAD: normocephalic, atraumatic. EYES: PERRL. Sclera clear/white. Vision is grossly intact. EARS: External ears normal, auditory canals clear and without drainage, mild fluid noted behind bilateral TMs without otitis. TMs normal without perforation. Hearing grossly intact. NOSE: External nose normal with no obvious nasal discharge, nares without redness, no rhinorrhea. THROAT: Mucous membranes moist, posterior pharynx clear. Moderate postnasal drainage NECK: Neck supple, non-tender mild left submandibular lymphadenopathy CARDIOVASCULAR: Regular rate and rhythm without murmurs, gallops, or rubs. RESPIRATORY: Dry cough on exam. Clear to auscultation. Slightly diminished bibasilar without wheezes GASTROINTESTINAL: Abdomen soft, non-tender, nondistended. Bowel sounds are active. No hepato-splenomegaly, or palpable masses. No guarding. SKIN: Dry scaly papular dermatitis to the right arm. Warm, intact with no suspicious lesions or rash, good texture and turgor. NEURO: awake, alert, and oriented to person, place and time. There were no obvious focal neurologic abnormalities. EXTREMITIES: No clubbing, cy
[2021-03-17 10:28] VITALS: BP 145/84; PULSE 86; RESP 20; TEMP 37.7; O2SAT 100
[2021-03-17 10:34] VITALS: BP 145/84; PULSE 86; RESP 20; TEMP 37.7; O2SAT 100
== END 2021-03-17 11:14 | disposition home or self-care (01) ==
PROVIDERS: Emergency Provider Nurse Practitioner Family
DX: J42 Unspecified chronic bronchitis (principal); Z20.822 Contact with and (suspected) exposure to COVID-19; K21.9 Gastro-esophageal reflux disease without esophagitis
CPT/HCPCS: 87426; 99213; C9803; G0463

== ENCOUNTER 2021-04-22 09:22 | Outpatient (CLI) | payer BC, SELFPAY ==
--- NOTE | ~2021-04-22 | XR_ITS ---
XR UGIAC wo kub DATE: 04/22/2021 10:08 INDICATION: Gastroesophageal reflux, diaphragmatic hernia TECHNIQUE: Air-contrast upper gastrointestinal series DAP: 42.234 Fluoroscopy time: 2.1 minutes 92 images COMPARISON: None FINDINGS: Small sliding hiatal hernia. No stricture, mucosal fold thickening, erosion, ulceration or intraluminal mass lesion of the esophagus, stomach or duodenum. Status post cholecystectomy. IMPRESSION: Small sliding hiatal hernia Reviewed, dictated and finalized at [facility] Reviewed, dictated and finalized at [facility]. CTOR RISK IMPRESSION: Small sliding hiatal hernia
== END 2021-04-22 09:23 | disposition home or self-care (01) ==
LOC: ANHIMG 09:25
PROVIDERS: Visit Provider Surgery
DX: K44.9 Diaphragmatic hernia without obstruction or gangrene (principal); K21.9 Gastro-esophageal reflux disease without esophagitis; Z90.49 Acquired absence of other specified parts of digestive tract
CPT/HCPCS: 74246

== ENCOUNTER → 2021-05-07 04:57 | Outpatient (CLI) | payer BC, SELFPAY ==
[2021-05-07 13:03] LABS: SARS-CoV-2 RNA PCR Negative
== END ==
PROVIDERS: Visit Provider Internal Medicine Gastroenterology
DX: Z01.812 Encounter for preprocedural laboratory examination (principal); Z20.822 Contact with and (suspected) exposure to COVID-19
CPT/HCPCS: C9803; U0003; U0005

== ENCOUNTER 2021-05-10 00:58 | Day surgery (SDC) | payer BC, SELFPAY ==
[2021-04-30 13:37] VITALS: BMI 34.8
--- NOTE | 2021-05-08 12:32 | WPDANESEPPF ---
Anes - Initial Pre Proc Eval Procedure: Operation Date: 05/10/21 14:00 Proposed Procedures p Esophagogastroduodenoscopy - Polo Tran MD Date/Time: 05/08/21 12:32 Surgeon: Polo Tran MD Pre Op Diagnosis: dysphagia, esophageal obstruction Patient Data Age: 55 Gender: F Height: 1.65 m Weight: 95 kg Allergies Allergy/AdvReac Type Severity Reaction Status Date / Time amoxicillin Allergy Unknown hives Verified 05/10/21 13:16 Home Medications Medication Instructions Recorded Confirmed Type dexlansoprazole [Dexilant] 60 mg PO DAILY 03/20/20 04/30/21 History albuterol sulfate 2 puff INHALATION Q4H PRN 11/19/20 04/30/21 History Patient hx anesthesia problems: none Family hx anesthesia problems: none Results Review: All pre-operative results and documents have been reviewed as part of the pre-operative evaluation. [facility] Past Medical History Medical History Anxiety and depression COPD (chronic obstructive pulmonary disease) GERD (gastroesophageal reflux disease) Kidney stone Surgical History Surgical History H/O: hysterectomy Hx of appendectomy Hx of cholecystectomy At the age of 20 Family History Family History Mother Hiatal hernia Aneurysm Other Diabetes mellitus Hypertension Social History Social History Smoking status: Never smoker Alcohol intake: never Substance use: never Substance use type: does not use Living arrangements: with family Additional occupation/education comments: [employer] Gender identity (if verbalized by the patient): Female Spiritual care concerns: No Anes - Eval Final PreProcedure Day of Procedure 05/08/21 12:32 Patient weight: obese Heart: regular rate and rhythm Lungs: clear to auscultation and normal air movement Airway: Mallampati scale class II Neurological: alert and oriented Last oral intake: >/= 8 hours ASA classification: III Emergent: no Anesthetic plan: proceed Anesthesia type and monitoring: general GIVS and standard monitoring Results Review: All pre-operative results and documents have been reviewed as part of the pre-operative evaluation. Informed Consent: The patient's anesthetic plan and its attendant risks and benefits were discussed with the patient/family/POA. Questions were solicited and answers provided to the satisfaction of the patient/family/POA.
--- NOTE | 2021-05-10 07:24 | P.CONGI_ITS ---
Assessment and Plan Assessment and plan (1) Dysphagia: Code(s): R13.10 - Dysphagia, unspecified Status: Acute Assessment and Plan: EGD to be performed today. We will obtain biopsies to rule out eosinophilic e sophagitis. (2) Nausea & vomiting: Qualifiers: Vomiting Intractability: unspecified Vomiting type: unspecified Qualified Code(s): R11.2 - Nausea with vomiting, unspecified Code(s): R11.2 - Nausea with vomiting, unspecified Status: Chronic Assessment and Plan: Gastric emptying scan has been ordered and not yet done GI Consult Note Consult date/time: 05/10/21 07:24 HPI: Melissa Mensah is a 55 year old female Was referred for investigation of several symptoms including persistent vomiting and suspected gastroesophageal reflux disease. She apparently had EGD last year sometime it did not have a stricture. She does however have difficulty with swallowing. She was having esophageal dilatation every 6 months. Despite that she was not getting relief of her symptoms and she was wondering if the procedure was really being done properly. She is fairly certain that an a couple of occasions biopsies were taken certainly on whether earlier ones in again last time, presumably to rule out eosinophilic esophagitis. A barium swallow was negative. She has recently saw Dr. Connor who has ordered a gastric emptying scan referred her for investigation . Review of Systems Review of Systems: All systems reviewed & are unremarkable except as noted in HPI and below PMFSH Past Medical History Medical History Anxiety and depression COPD (chronic obstructive pulmonary disease) GERD (gastroesophageal reflux disease) Kidney stone Surgical History Surgical History H/O: hysterectomy Hx of appendectomy Hx of cholecystectomy At the age of 20 Family History Family History Mother Hiatal hernia Aneurysm Other Diabetes mellitus Hypertension Social History Social History Smoking status: Never smoker Alcohol intake: never Substance use: never Substance use type: does not use Living arrangements: with family Additional occupation/education comments: [employer] Gender identity (if verbalized by the patient): Female Spiritual care concerns: No Meds Home Medications and Allergies Home Medications Medication Instructions Recorded Confirmed Type dexlansoprazole [Dexilant] 60 mg PO DAILY 03/20/20 04/30/21 History albuterol sulfate 2 puff INHALATION Q4H PRN 11/19/20 04/30/21 History Allergies Allergy/AdvReac Type Severity Reaction Status Date / Time amoxicillin Allergy Unknown hives Verified 05/10/21 13:16 Exam Const: General: alert Orientation/consciousness: patient oriented x3 Resp: Auscultation: clear to auscultation bilaterally Cardio: Rhythm: regular rhythm GI: GI Palp: Yes Soft to palpation and No Tenderness to palpation present (GI) Neuro: General: patient oriented x3
[2021-05-10 13:17] VITALS: BP 111/73; PULSE 96; RESP 16; TEMP 36.3; O2SAT 100
[2021-05-10] MEDS: LACTATED RINGERS 1,000 ML 150 ML IV CONT (13:35)
[2021-05-10 14:17] VITALS: BP 116/74; PULSE 80; RESP 16; O2SAT 100
[2021-05-10 14:27] VITALS: BP 124/74; PULSE 74; RESP 16; O2SAT 98
[2021-05-10 14:35] VITALS: BP 122/77; PULSE 75; RESP 16; O2SAT 98
== END 2021-05-10 14:46 | disposition home or self-care (01) ==
PROVIDERS: Referring Provider Surgery; Visit Provider Internal Medicine Gastroenterology
PROC: 0DJ08ZZ Inspection of Upper Intestinal Tract, Via Natural or Artificial Opening Endoscopic (ICD-10-PCS; CPT 43235; principal; 2021-05-10 14:00)
DX: K22.70 Barrett's esophagus without dysplasia (principal); K21.00 Gastro-esophageal reflux disease with esophagitis, without bleeding; J44.9 Chronic obstructive pulmonary disease, unspecified; F41.8 Other specified anxiety disorders; Z79.51 Long term (current) use of inhaled steroids; E66.9 Obesity, unspecified; Z68.33 Body mass index [BMI] 33.0-33.9, adult
CPT/HCPCS: 43239; 88305; 88313; J2704; J7120

== ENCOUNTER 2021-05-13 08:48 | Emergency (ER) | payer BC, SELFPAY ==
--- NOTE | ~2021-05-13 | XR_ITS ---
EXAMINATION: XR chest 2V 05/13/2021 09:19 INDICATION: Cough for 2 weeks PROCEDURE: 2 view chest COMPARISON: 02/16/2019 FINDINGS: The lungs are clear. The cardiomediastinal silhouette is within normal limits. There are no pleural effusions. There is no pneumothorax suspected. IMPRESSION: 1: NO ACUTE CARDIOPULMONARY DISEASE. Reviewed, dictated and finalized at [facility].
[2021-05-13 08:53] VITALS: BP 122/74; PULSE 74; RESP 20; TEMP 37.1; O2SAT 99
--- NOTE | 2021-05-13 08:58 | ED.URI ---
HPI - URI/Sore Throat General Chief Complaint: Upper Respiratory Infection Stated Complaint: Cough/Sore Throat Time Seen by Provider: 05/13/21 08:58 Source: patient Mode of arrival: ambulatory Limitations: no limitations History of Present Illness HPI Narrative: 55-year-old female with history of COPD presents with complaint of dry cough, shortness of breath for 2 weeks. Reports that she is taking Robitussin-DM with no relief. Patient had recent Covid test for a GI procedure that was negative. She uses albuterol inhaler daily. Her primary care physician is out of the office all week. She reports she had a low-grade fever yesterday but otherwise no worsening of cough. It is just not going away . All systems reviewed and negative except as noted above. Related Data Home Medications Medication Instructions Recorded Confirmed albuterol sulfate INHALATION 05/13/21 Allergies Allergy/AdvReac Type Severity Reaction Status Date / Time amoxicillin Allergy Unknown hives Verified 05/10/21 13:16 Review of Systems Review of Systems: CONSTITUTIONAL: Denies fever, chills, or sweats. EYES: Denies visual changes, redness, or discharge. ENT: Denies rhinorrhea, congestion, sore throat, or otalgia. CARDIOVASCULAR: Denies chest pain, palpitations, or edema. RESPIRATORY: Reports cough or dyspnea. GASTROINTESTINAL: Denies abdominal pain, nausea, vomiting, or diarrhea. GENITOURINARY: Denies dysuria or hematuria. SKIN: Denies rash or itching. MUSCULOSKELETAL: Denies back pain, joint pain, or myalgia. NEUROLOGIC: Denies headache, numbness, or weakness. PSYCHIATRIC: Denies anxiety or depression. All other systems reviewed are negative, except as documented in HPI. [facility] Past Medical History Medical History Anxiety and depression COPD (chronic obstructive pulmonary disease) GERD (gastroesophageal reflux disease) Kidney stone Surgical History Surgical History H/O: hysterectomy Hx of appendectomy Hx of cholecystectomy At the age of 20 Family History Family History Mother Hiatal hernia Aneurysm Other Diabetes mellitus Hypertension Social History Social History Smoking status: Never smoker Alcohol intake: never Substance use: never Substance use type: does not use Additional occupation/education comments: [employer] Gender identity (if verbalized by the patient): Female Spiritual care concerns: No Comments At time of signature, agree with nursing past medical, surgical, social and family history. There is no relevant family history pertinent to the presenting complaint. Exam Narrative: GENERAL: This is a well-nourished, well-developed patient, in no apparent distress. HEAD: normocephalic, atraumatic. EYES: PERRL. Sclera clear/white. Vision is grossly intact. EARS: External ears normal, auditory canals clear and without drainage, TMs normal without perforation. Hearing grossly intact. NOSE: External nose normal with no obvious nasal discharge, nares without redness, no rhinorrhea. THROAT: Mucous membranes moist, posterior pharynx clear. NECK: Neck supple, non-tender without lymphadenopathy, masses or thyromegaly. CARDIOVASCULAR: Regular rate and rhythm without murmurs, gallops, or rubs. RESPIRATORY: Mildly decreased lung sounds on expiration to lower lung harris. Breath sounds equal bilaterally. No wheezes, rales, or rhonchi. SKIN: warm, Dry, intact with no suspicious lesions or rash, good texture and turgor. NEURO: awake, alert, and oriented to person, place and time. There were no obvious focal neurologic abnormalities. EXTREMITIES: Normal range of motion. Course Course Level of Care: Express Care Visit Vital Signs Vital signs: Vital Signs Temperature 37.1 C 05/13/21 08:53 P
== END 2021-05-13 09:39 | disposition home or self-care (01) ==
PROVIDERS: Emergency Provider Nurse Practitioner Family
DX: J20.9 Acute bronchitis, unspecified (principal); J44.9 Chronic obstructive pulmonary disease, unspecified; K21.9 Gastro-esophageal reflux disease without esophagitis
CPT/HCPCS: 71046; 99213; G0463

== ENCOUNTER 2021-08-12 18:03 | Emergency (ER) | payer BC, SELFPAY ==
[2021-08-12 18:10] VITALS: BP 124/77; PULSE 92; RESP 20; TEMP 36.6; O2SAT 100
--- NOTE | 2021-08-12 18:33 | ED.EAR ---
HPI - Ear Problem General Chief complaint: Ear Stated complaint: unable to ear out of right ear Time Seen by Provider: 08/12/21 18:33 Source: patient Mode of arrival: ambulatory Limitations: no limitations History of Present Illness HPI Narrative: 55-year-old female presents with right ear pain for 2 to 3 days. Also reports that she has had some nasal congestion, postnasal drainage, intermittent sore throat. Denies fever chills. All systems reviewed and negative except as noted above. Related Data Home Medications Medication Instructions Recorded Confirmed albuterol sulfate 90 mcg/actuation 2 puff inhalation Q4-6H PRN 05/13/21 08/12/21 aerosol inhaler Shortness Of Breath Or Wheezing dexlansoprazole 30 mg 30 mg PO DAILY 08/12/21 08/12/21 capsule,biphase delayed release (Dexilant) Allergies Allergy/AdvReac Type Severity Reaction Status Date / Time amoxicillin Allergy Unknown hives Verified 08/12/21 18:24 Review of Systems Review of Systems: CONSTITUTIONAL: Denies fever, chills, or sweats. EYES: Denies visual changes, redness, or discharge. ENT: Reports rhinorrhea, congestion, sore throat and right ear pain. CARDIOVASCULAR: Denies chest pain, palpitations, or edema. RESPIRATORY: Denies cough or dyspnea. GASTROINTESTINAL: Denies abdominal pain, nausea, vomiting, or diarrhea. GENITOURINARY: Denies dysuria or hematuria. SKIN: Denies rash or itching. MUSCULOSKELETAL: Denies back pain, joint pain, or myalgia. NEUROLOGIC: Denies headache, numbness, or weakness. PSYCHIATRIC: Denies anxiety or depression. All other systems reviewed are negative, except as documented in HPI. [facility] Past Medical History Medical History Anxiety and depression COPD (chronic obstructive pulmonary disease) GERD (gastroesophageal reflux disease) Kidney stone Surgical History Surgical History H/O: hysterectomy Hx of appendectomy Hx of cholecystectomy At the age of 20 Family History Family History Mother Hiatal hernia Aneurysm Other Diabetes mellitus Hypertension Social History Social History Smoking status: Never smoker Alcohol intake: never Substance use: never Substance use type: does not use Additional occupation/education comments: [employer] Gender identity (if verbalized by the patient): Female Spiritual care concerns: No Comments At time of signature, agree with nursing past medical, surgical, social and family history. There is no relevant family history pertinent to the presenting complaint. Exam Narrative: GENERAL: This is a well-nourished, well-developed patient, in no apparent distress. HEAD: normocephalic, atraumatic. EYES: PERRL. Sclera clear/white. Vision is grossly intact. EARS: External ears normal, auditory canals clear and without drainage, right TM is erythematous and retracted. Left TM is normal. NOSE: External nose normal with nasal drainage, erythema to nares. THROAT: Mucous membranes moist, there is postnasal drainage to posterior pharynx. NECK: Neck supple, non-tender without lymphadenopathy, masses or thyromegaly. CARDIOVASCULAR: Regular rate and rhythm without murmurs, gallops, or rubs. RESPIRATORY: Clear to auscultation. Breath sounds equal bilaterally. No wheezes, rales, or rhonchi. SKIN: warm, Dry, intact with no suspicious lesions or rash, good texture and turgor. NEURO: awake, alert, and oriented to person, place and time. There were no obvious focal neurologic abnormalities. EXTREMITIES: No joint tenderness, effusion, or edema noted. Course Course Level of Care: Express Care Visit Vital Signs Vital signs: Vital Signs Temperature 36.6 C 08/12/21 18:10 Pulse Rate 92 08/12/21 18:10 Respiratory Rate 20 08/12/21 18:10 Blood Pressure 124/77
== END 2021-08-12 18:40 | disposition home or self-care (01) ==
PROVIDERS: Emergency Provider Nurse Practitioner Family
DX: H66.91 Otitis media, unspecified, right ear (principal); J30.9 Allergic rhinitis, unspecified; J44.9 Chronic obstructive pulmonary disease, unspecified; K21.9 Gastro-esophageal reflux disease without esophagitis
CPT/HCPCS: 99213; G0463

== ENCOUNTER 2021-12-23 08:07 | Emergency (ER) | payer BC, SELFPAY ==
--- NOTE | 2021-12-23 08:14 | ED.NAVMDI ---
HPI - Nausea/Vomiting/Diarrhea General Chief complaint: Nausea/Vomiting/Diarrhea Stated complaint: Vomiting/Diarrhea Time Seen by Provider: 12/23/21 08:40 Source: patient and RN notes reviewed Mode of arrival: ambulatory Limitations: no limitations History of Present Illness HPI Narrative: 56-year-old female presents with concern for his 3 day history of nausea, vomiting, diarrhea, nasal congestion, cough. She reports fever on days 1 and 2. She denies any fever pressure reports pain slightly improving. She denies taking any [id number] medications for her symptoms. She denies abdominal pain. Reports she is keeping down fluids, has trouble keeping down food. MD elicited complaint: nausea, vomiting and diarrhea Related Data Home Medications Medication Instructions Recorded Confirmed albuterol sulfate 90 mcg/actuation 2 puff inhalation Q4-6H PRN 05/13/21 12/23/21 aerosol inhaler Shortness Of Breath Or Wheezing dexlansoprazole 30 mg 30 mg PO DAILY 08/12/21 08/12/21 capsule,biphase delayed release (Dexilant) Allergies Allergy/AdvReac Type Severity Reaction Status Date / Time amoxicillin Allergy Unknown hives Verified 08/12/21 18:24 Review of Systems Review of Systems: CONSTITUTIONAL: Reports malaise,fever. ENT: reports rhinorrhea, congestion. Denies sinus pain, otalgia or sore throat. CARDIOVASCULAR: Denies chest pain, palpitations, or edema. RESPIRATORY: report cough. Denies dyspnea. GASTROINTESTINAL: Denies abdominal pain, bloody, or mucous stools. reports nausea, vomiting, diarrhea GENITOURINARY: Denies dysuria or hematuria. MUSCULOSKELETAL: Denies myalgia. NEUROLOGIC: Denies headache. All systems reviewed & are unremarkable except as noted in HPI and below PMFSH Past Medical History Medical History Anxiety and depression COPD (chronic obstructive pulmonary disease) GERD (gastroesophageal reflux disease) Kidney stone Surgical History Surgical History H/O: hysterectomy Hx of appendectomy Hx of cholecystectomy At the age of 20 Family History Family History Mother Hiatal hernia Aneurysm Other Diabetes mellitus Hypertension Social History Social History Smoking status: Never smoker Alcohol intake: never Substance use: never Substance use type: does not use Additional occupation/education comments: [employer] Gender identity (if verbalized by the patient): Female Spiritual care concerns: No Comments At time of signature, agree with nursing past medical, surgical, social and family history. There is no relevant family history pertinent to the presenting complaint Exam Narrative: GENERAL: Well-appearing, well-nourished, and in no acute distress. HEAD: Normocephalic, atraumatic. EYES: PERRLA, conjunctivae clear, and EOMI. ENT: Nares clear, turbinates pink, no rhinorrhea or epistaxis. Mucous membranes moist. Oropharynx without edema, erythema, or lesions. Tonsils not enlarged and without exudate. NECK: Supple. No lymphadenopathy CHEST: Speaks in full sentences. No respiratory distress. HEART: Regular rate and rhythm. ABDOMEN: Soft, flat, nondistended, nontender. No guarding, rebound tenderness, or rigidity. No pulsatile masses. Bowel sounds present in all four quadrants. No organomegaly. Negative Scott?s sign. No periumbilical tenderness. No Supra public tenderness or distension. Good femoral pulses bilaterally. No hernia noted. No scars or surface trauma. SKIN: Warm, dry, no rash. NEURO: Alert and oriented x3. PSYCH: Normal mood and affect Course Course Emergency Course: offered influenza test, patient refused Patient is aware of diagnosis, understands and agrees to treatment plan. Anticipatory guidance given. Patient agrees to follow-up as d
[2021-12-23 08:25] VITALS: BP 110/75; PULSE 78; RESP 12; TEMP 37.3; O2SAT 98
== END 2021-12-23 08:57 | disposition home or self-care (01) ==
PROVIDERS: Emergency Provider Nurse Practitioner
DX: R11.2 Nausea with vomiting, unspecified (principal); R19.7 Diarrhea, unspecified; J44.9 Chronic obstructive pulmonary disease, unspecified; K21.9 Gastro-esophageal reflux disease without esophagitis
CPT/HCPCS: 99213; G0463

== ENCOUNTER 2022-02-08 08:08 | Emergency (ER) | payer BC, SELFPAY ==
--- NOTE | 2022-02-08 08:14 | ED.URI ---
HPI - URI/Sore Throat General Chief Complaint: Upper Respiratory Infection Stated Complaint: Cough/Sore Throat Time Seen by Provider: 02/08/22 08:31 Source: patient and RN notes reviewed Mode of arrival: ambulatory Limitations: no limitations History of Present Illness HPI Narrative: 56-year-old female with history of COPD presents with concern of for fever, vomiting, productive cough that started overnight. She denies taking any [id number]-[id number] medications. Reports she needs her rescue inhaler frequently and it still does not help. MD elicited complaint: fever and cough Related Data Home Medications Medication Instructions Recorded Confirmed albuterol sulfate 90 mcg/actuation 2 puff inhalation Q4-6H PRN 05/13/21 12/23/21 aerosol inhaler Shortness Of Breath Or Wheezing dexlansoprazole 30 mg 30 mg PO DAILY 08/12/21 08/12/21 capsule,biphase delayed release (Dexilant) budesonide-formoterol HFA 160 inhalation 02/08/22 mcg-4.5 mcg/actuation aerosol inhaler (Symbicort) Allergies Allergy/AdvReac Type Severity Reaction Status Date / Time amoxicillin Allergy Unknown hives Verified 08/12/21 18:24 Review of Systems Review of Systems: CONSTITUTIONAL: Reports malaise, fever. EYES: Denies visual changes, redness, or discharge. ENT: Reports rhinorrhea, congestion. Denies sinus pain, otalgia and sore throat. CARDIOVASCULAR: Denies chest pain, palpitations, or edema. RESPIRATORY: Reports productive cough. Denies dyspnea. GASTROINTESTINAL: Denies abdominal pain, nausea, vomiting, diarrhea SKIN: Denies rash or itching. MUSCULOSKELETAL: Denies myalgia. NEUROLOGIC: Denies headache. All systems reviewed & are unremarkable except as noted in HPI and below PMFSH Past Medical History Medical History Anxiety and depression COPD (chronic obstructive pulmonary disease) GERD (gastroesophageal reflux disease) Kidney stone Surgical History Surgical History H/O: hysterectomy Hx of appendectomy Hx of cholecystectomy At the age of 20 Family History Family History Mother Hiatal hernia Aneurysm Other Diabetes mellitus Hypertension Social History Social History Smoking status: Never smoker Alcohol intake: never Substance use: never Substance use type: does not use Additional occupation/education comments: [employer] Gender identity (if verbalized by the patient): Female Spiritual care concerns: No Comments At time of signature, agree with nursing past medical, surgical, social and family history. There is no relevant family history pertinent to the presenting complaint Exam Narrative: GENERAL: Well-appearing, well-nourished, and in no acute distress. HEAD: Normocephalic EYES: PERRLA, conjunctivae clear ENT: Nares clear, turbinates edematous and erythematous, clear discharge. Mucous membranes moist. TM pearly castillo with dull light reflex bilaterally; no tragal tenderness. Oropharynx not erythematous without lesions. Tonsils not enlarged and without exudate, no drooling, no hoarseness, no trismus, uvula midline. NECK: Supple. No lymphadenopathy CHEST: Clear to auscultation, breath sounds equal. No wheezing, rhonchi, rales, or stridor. No respiratory distress, speaks in full sentences. HEART: Regular rate and rhythm. No murmur heard. SKIN: Warm, dry, no rash. NEURO: Alert and oriented x3. PSYCH: Normal mood and affect Course Course Emergency Course: Patient is aware of diagnosis, understands and agrees to treatment plan. Anticipatory guidance given. Patient agrees to follow-up as directed and is aware of reasons to seek care at the emergency department. Portions of this record may have been created with voice recognition software Level of Care: Express Care Visit Vital Signs Negar
[2022-02-08 08:15] VITALS: BP 152/84; PULSE 100; RESP 18; TEMP 38.1; O2SAT 98
== END 2022-02-08 08:50 | disposition home or self-care (01) ==
PROVIDERS: Emergency Provider Nurse Practitioner
DX: J44.1 Chronic obstructive pulmonary disease with (acute) exacerbation (principal); R05.9 Cough, unspecified; J02.9 Acute pharyngitis, unspecified; R50.9 Fever, unspecified; F41.9 Anxiety disorder, unspecified; F32.9 Major depressive disorder, single episode, unspecified
CPT/HCPCS: 99213; G0463

== ENCOUNTER 2022-03-25 10:49 | Emergency (ER) | payer BC, SELFPAY ==
--- NOTE | ~2022-03-25 | XR_ITS ---
EXAMINATION: XR finger 3rd LT min 2V INDICATION: Left third finger pain TECHNIQUE: Four views of the left third finger are obtained. COMPARISON: None available FINDINGS: No fracture, dislocation, or subluxation. The bones, soft tissues, and joint spaces are nor mal. IMPRESSION: 1. No acute osseous abnormality. Reviewed, dictated and finalized at location B. [employer]
[2022-03-25 10:55] VITALS: BP 146/76; PULSE 76; RESP 18; TEMP 36.8; O2SAT 100
--- NOTE | 2022-03-25 11:24 | ED.UPPEXIN ---
HPI - Extremity Injury (Upper) General Chief Complaint: Extremity Injury, Upper Stated Complaint: Injury to left middle finger Source: patient and RN notes reviewed History of Present Illness HPI narrative: 56-year-old female presents to urgent care complaints of left finger pain. Patient states prior to arrival it was slammed in her door on accident. Patient denies any numbness, tingling, any other injuries. Some parts of this dictation were generated by voice recognition software and may contain typographical and/or grammatical inaccuracies. Related Data Home Medications Medication Instructions Recorded Confirmed albuterol sulfate 90 mcg/actuation 2 puff inhalation Q4-6H PRN 05/13/21 03/25/22 aerosol inhaler Shortness Of Breath Or Wheezing dexlansoprazole 30 mg 30 mg PO DAILY 08/12/21 03/25/22 capsule,biphase delayed release (Dexilant) budesonide-formoterol HFA 160 See Rx Instructions .Route .COMPLEX 02/08/22 03/25/22 mcg-4.5 mcg/actuation aerosol inhaler (Symbicort) donepezil 10 mg tablet 10 mg PO HS 03/25/22 03/25/22 fluticasone propionate 44 See Rx Instructions .Route .COMPLEX 03/25/22 03/25/22 mcg/actuation HFA aerosol inhaler memantine 10 mg tablet 10 mg PO QPM 03/25/22 03/25/22 sucralfate 1 gram tablet See Rx Instructions .Route .COMPLEX 03/25/22 03/25/22 umeclidinium 62.5 mcg/actuation See Rx Instructions .Route .COMPLEX 03/25/22 03/25/22 blister powder for inhalation (Incruse Ellipta) Allergies Allergy/AdvReac Type Severity Reaction Status Date / Time amoxicillin Allergy Unknown hives Verified 03/25/22 11:06 Review of Systems Review of Systems: CONSTITUTIONAL: Denies fever, chills, or sweats. EYES: Denies visual changes, redness, or discharge. ENT: Denies otalgia and sore throat CARDIOVASCULAR: Denies chest pain, palpitations, or edema. RESPIRATORY: Denies cough or dyspnea. GASTROINTESTINAL: Denies abdominal pain, nausea, vomiting, or diarrhea. GENITOURINARY: Denies dysuria or hematuria. SKIN: Denies rash or itching. MUSCULOSKELETAL: left middle finger pain NEUROLOGIC: Denies headache, numbness, or weakness. [facility] Past Medical History Medical History Anxiety and depression COPD (chronic obstructive pulmonary disease) GERD (gastroesophageal reflux disease) Kidney stone Surgical History Surgical History H/O: hysterectomy Hx of appendectomy Hx of cholecystectomy At the age of 20 Family History Family History Mother Hiatal hernia Aneurysm Other Diabetes mellitus Hypertension Social History Social History Smoking status: Never smoker Alcohol intake: never Substance use: never Substance use type: does not use Living arrangements: with family Occupation/Education: occupation Additional occupation/education comments: [employer] Gender identity (if verbalized by the patient): Female Spiritual care concerns: No Comments At the time of my signature, I reviewed and agree with the nursing past medical, surgical, social, and family history. There is no relevant family history pertinent to the patient complaint. Exam Narrative: GENERAL: This is a well-nourished, well-developed patient, in no apparent distress. HEAD: normocephalic, atraumatic. EYES: PERRL. Sclera clear/white. Vision is grossly intact. EARS: External ears normal, auditory canals clear and without drainage, TMs normal without perforation. Hearing grossly intact. NOSE: External nose normal with no obvious nasal discharge, nares without redness, no rhinorrhea. THROAT: Mucous membranes moist, posterior pharynx clear. NECK: Neck supple, non-tender without lymphadenopathy, masses or thyromegaly. CARDIOVASCULAR: Regular rate and rhythm without murmurs, gallops, or rubs. RESPIRATORY: C
== END 2022-03-25 12:05 | disposition home or self-care (01) ==
PROVIDERS: Emergency Provider Nurse Practitioner Family
DX: S60.032A Contusion of left middle finger without damage to nail, initial encounter (principal); W23.0XXA Caught, crushed, jammed, or pinched between moving objects, initial encounter; J44.9 Chronic obstructive pulmonary disease, unspecified; K21.9 Gastro-esophageal reflux disease without esophagitis
CPT/HCPCS: 29130; 73140; 99213; G0463

== ENCOUNTER 2022-07-24 09:58 | Emergency (ER) | payer BC, SELFPAY ==
[2022-07-24 10:02] VITALS: BP 142/76; PULSE 74; RESP 20; TEMP 37.2; O2SAT 99
--- NOTE | 2022-07-24 10:25 | ED.ABDPAIN ---
HPI - Abdominal Pain General Chief Complaint: Abdominal Pain Stated Complaint: Lower pain injury Source: patient Mode of arrival: ambulatory Limitations: no limitations History of Present Illness HPI narrative: 56 y/o female with hx GERD, hiatal hernia, and esophageal stricture presented for c/o abdominal pain and dizziness since yesterday. Patient states she follows with GI specialist and is told she needs hernia surgery. She is compliant with Dexilant. States urine is dark. Denies hematuria, flank pain, n/v/d/f/c. Has decreased appetite, also attempting to lose weight for surgery. Also reports low back pain since yesterday after lifting heavy boxes for work and moving over the past few days. states she can not sleep at night due to the back pain and spasms. She is taking ibuprofen for pain. Endorses history of kidney stones and is concerned for recurrence. She denies numbness, tingling, weakness of the lower extremities, Denies change in gait, loss of bowel or bladder, or saddle paresthesia. Related Data Home Medications Medication Instructions Recorded Confirmed albuterol sulfate 90 mcg/actuation 2 puff inhalation Q4-6H PRN 05/13/21 07/24/22 aerosol inhaler Shortness Of Breath Or Wheezing dexlansoprazole 30 mg 30 mg PO DAILY 08/12/21 07/24/22 capsule,biphase delayed release (Dexilant) Allergies Allergy/AdvReac Type Severity Reaction Status Date / Time amoxicillin Allergy Unknown hives Verified 07/24/22 10:04 Review of Systems Review of Systems: CONSTITUTIONAL: Denies body aches, fever, chills EYES: Denies visual changes CARDIOVASCULAR: Denies chest pain, palpitations, or edema. RESPIRATORY: Denies cough or dyspnea. GASTROINTESTINAL: reports chronic abdominal pain, denies nausea, vomiting, or diarrhea. SKIN: Denies rash, itching, or wounds. MUSCULOSKELETAL: reports back pain NEUROLOGIC: Denies headache, numbness, tingling, or weakness. All systems reviewed & are unremarkable except as noted in HPI and below PMFSH Past Medical History Medical History Anxiety and depression COPD (chronic obstructive pulmonary disease) GERD (gastroesophageal reflux disease) Kidney stone Surgical History Surgical History H/O: hysterectomy Hx of appendectomy Hx of cholecystectomy At the age of 20 Family History Family History Mother Hiatal hernia Aneurysm Other Diabetes mellitus Hypertension Social History Social History Smoking status: Never smoker Alcohol intake: never Substance use: never Substance use type: does not use Living arrangements: with family Occupation/Education: occupation Additional occupation/education comments: [employer] Gender identity (if verbalized by the patient): Female Spiritual care concerns: No Comments At time of signature, I have reviewed and agree with nursing past medical, surgical, social and family history unless otherwise noted. Please see nursing chart for further information. There is no relevant family history pertinent to the presenting complaint Exam Narrative: GENERAL: Well-appearing, in no acute distress. HEAD: Normocephalic, atraumatic. EYES: conjunctivae clear NECK: Supple. full ROM CHEST: Speaks in full sentences. No respiratory distress. HEART: Regular rate and rhythm. Normal and equal peripheral pulses. ABD: epigastric tenderness with light touch. BS positive, soft, nondistended, no scarring. No dueñas's sign. No pulsatile masses or organomegaly. MUSC: Reports tenderness with light touch across entire lower back from L1 to bilateral sides to hips. No Vertebral point tenderness or step off. BLEs with normal strength and sensation, normal range of motion, endorses pain with movement. No bruising, rash, or woun
== END 2022-07-24 10:55 | disposition home or self-care (01) ==
PROVIDERS: Emergency Provider Nurse Practitioner Family
DX: M54.50 Low back pain, unspecified (principal); R10.9 Unspecified abdominal pain; J44.9 Chronic obstructive pulmonary disease, unspecified
CPT/HCPCS: 81003; 99213; G0463

== ENCOUNTER 2022-12-15 18:05 | Emergency (ER) | payer OTHER, SELFPAY ==
--- NOTE | ~2022-12-15 | XR_ITS ---
EXAMINATION: [id number] INDICATION: Right-sided chest pain TECHNIQUE: A frontal view of the chest and 3 views of the right ribs were obtained. COMPARISON: 05/13/2021 FINDINGS: The lungs are free of acute opacities. No pleural effusion or pneumothorax. The cardiomedia stinal silhouette is normal. No displaced rib fracture is identified. Surgical clips in the right upp er quadrant are likely from prior cholecystectomy. IMPRESSION: 1. No acute cardiopulmonary abnormality or evidence of displaced rib fracture. Reviewed, dictated and finalized at location F.
[2022-12-15 18:21] VITALS: BP 114/75; PULSE 93; RESP 16; TEMP 36.8; O2SAT 96
--- NOTE | 2022-12-15 19:11 | ED.GENADULT ---
HPI - General Adult General Chief complaint: Fall Stated complaint: Fall Injury/Right Stomach Pain, Blood in Urine Time Seen by Provider: 12/15/22 19:11 Source: patient, RN notes reviewed and old records reviewed Mode of arrival: ambulatory Limitations: no limitations History of Present Illness HPI narrative: 57-year-old female presents to the [facility] with complaints of falling this morning, hitting the right ribs against a table. Reports blood in her urine. No treatment prior to arrival No bruising or swelling noted to the right lateral ribs. Taking full breaths. Related Data Home Medications Medication Instructions Recorded Confirmed albuterol sulfate 90 mcg/actuation 2 puff inhalation Q4-6H PRN 05/13/21 07/24/22 aerosol inhaler Shortness Of Breath Or Wheezing Allergies Allergy/AdvReac Type Severity Reaction Status Date / Time amoxicillin Allergy Unknown hives Verified 07/24/22 10:04 Review of Systems Review of Systems: All systems reviewed & are unremarkable except as noted in HPI and below Constitutional: Constitutional: Reports no additional constitutional complaints Eyes: Eyes: Reports no additional eye complaints ENT: Reports system reviewed and no additional complaints, except as documented Cardiovascular: Cardiovascular: Reports no additional cardiovascular complaints, Denies chest pain and Denies dyspnea Respiratory: Respiratory: Reports no additional respiratory complaints, Denies chest congestion, Denies cough and Denies dyspnea Gastrointestinal: Gastrointestinal: Reports no additional gastrointestinal complaints, Denies abdominal pain, Denies nausea and Denies vomiting Musculoskeletal: Musculoskeletal: Reports as per HPI Integumentary/Breasts: Skin/Breast: Reports system reviewed and no additional complaints, except as docu Neurologic: Reports system reviewed and no additional complaints, except as documented Psychiatric: Psychiatric: Reports no additional psychiatric complaints Allergic/Immunologic: Allergic/Immunologic: Reports no additional allergic/immunologic complaints [facility] Past Medical History Medical History Anxiety and depression COPD (chronic obstructive pulmonary disease) GERD (gastroesophageal reflux disease) Kidney stone Surgical History Surgical History H/O: hysterectomy Hx of appendectomy Hx of cholecystectomy At the age of 20 Family History Family History Mother Hiatal hernia Aneurysm Other Diabetes mellitus Hypertension Social History Social History Smoking status: Never smoker Alcohol intake: never Substance use: never Substance use type: does not use Living arrangements: with family Occupation/Education: occupation Additional occupation/education comments: [employer] Gender identity (if verbalized by the patient): Female Spiritual care concerns: No Comments At the time of my signature, I reviewed and agree with the nursing past medical, surgical, social, and family history. There is no relevant family history pertinent to the patient complaint. Exam Const: General: cooperative, healthy appearing, comfortable, no acute distress, well developed, alert and well nourished Nutritional Appearance: well nourished and obese morbidly obese Orientation/consciousness: patient oriented x3 Limitations: no limitations HENMT: Head: normal to inspection Ears: hearing grossly normal bilaterally and external ears normal Face/Nose/Sinus: Normal external nose present, Normal nares present, Normal nasal mucous membranes and turbinates present, normal facial exam and face symmetric Face and sinus: normal facial exam and face symmetric Eyes: General: appearance normal, both eyes and all related structures Alignment and Positi
== END 2022-12-15 19:24 | disposition home or self-care (01) ==
PROVIDERS: Emergency Provider Nurse Practitioner
DX: S20.211A Contusion of right front wall of thorax, initial encounter (principal); W19.XXXA Unspecified fall, initial encounter; J44.9 Chronic obstructive pulmonary disease, unspecified; K21.9 Gastro-esophageal reflux disease without esophagitis
CPT/HCPCS: 71101; 81003; 99213; G0463

== ENCOUNTER 2023-02-28 12:37 | Emergency (ER) | payer OTHER, SELFPAY ==
[2023-02-28 12:42] VITALS: BP 144/78; PULSE 76; RESP 20; TEMP 36.9; O2SAT 98
[2023-02-28 13:09] VITALS: BP 144/78; PULSE 76; RESP 20; TEMP 36.9; O2SAT 98
--- NOTE | 2023-02-28 13:25 | ED.URI ---
HPI - URI/Sore Throat General Chief Complaint: Upper Respiratory Infection Stated Complaint: sneezing/fever/nose Time Seen by Provider: 02/28/23 13:20 Source: patient, RN notes reviewed and old records reviewed Mode of arrival: ambulatory Limitations: no limitations History of Present Illness HPI Narrative: 57-year-old female who presents to [facility] with complaints 1 week duration of sneezing, coughing, intermittent fevers, some headache, sore throat, has felt achy and has had some sinus congestion with drainage. Patient reports she has been taking DayQuil, NyQuil,Robitussin cough syrup for her symptoms without resolution. Patient states that she has had intermittent fevers. Patient states that throat is very sore and states that she has been using Chloraseptic at bedtime,and sucking on cough drops for discomfort too. Patient denies any shortness of breath,nausea or vomiting, or diarrhea, MD elicited complaint: cough, rhinorrhea, nasal congestion and other Onset (ago): week(s) (1) Pain scale (0-10): 8 Able to tolerate fluids by mouth: Yes Treatments prior to arrival: other (DayQuil,NyQuil and Robitussin) Related Data Home Medications Medication Instructions Recorded Confirmed albuterol sulfate 90 mcg/actuation 2 puff inhalation Q4-6H PRN 05/13/21 02/28/23 aerosol inhaler Shortness Of Breath Or Wheezing Allergies Allergy/AdvReac Type Severity Reaction Status Date / Time amoxicillin Allergy Unknown hives Verified 02/28/23 13:09 Review of Systems Review of Systems: CONSTITUTIONAL: Reports some malaise, chills, sweats, or fever. EYES: Denies visual changes, redness, or discharge. ENT: Reports rhinorrhea, congestion, sinus pain, no otalgia and positive sore throat. CARDIOVASCULAR: Denies chest pain, palpitations, or edema. RESPIRATORY: Reports cough.? Denies dyspnea. GASTROINTESTINAL: Denies abdominal pain, nausea, vomiting, diarrhea SKIN: Denies rash or itching. MUSCULOSKELETAL: Positive for myalgia. NEUROLOGIC: Reports headache. All systems reviewed & are unremarkable except as noted in HPI and below PMFSH Past Medical History Medical History Anxiety and depression COPD (chronic obstructive pulmonary disease) GERD (gastroesophageal reflux disease) Kidney stone Surgical History Surgical History H/O: hysterectomy Hx of appendectomy Hx of cholecystectomy At the age of 20 Family History Family History Mother Hiatal hernia Aneurysm Other Diabetes mellitus Hypertension Social History Social History Smoking status: Never smoker Alcohol intake: never Substance use: never Substance use type: does not use Living arrangements: with family Occupation/Education: occupation Additional occupation/education comments: [employer] Gender identity (if verbalized by the patient): Female Spiritual care concerns: No Comments At time of signature, agree with nursing past medical, surgical, social and family history. There is no relevant family history pertinent to the presenting complaint Exam Narrative: GENERAL: Well-appearing, well-nourished, and in no acute distress. HEAD: Normocephalic EYES: PERRLA, conjunctivae clear ENT: Nares clear, turbinates edematous and erythematous, clear discharge. Mucous membranes moist. TM pearly castillo with dull light reflex bilaterally; no tragal tenderness. Oropharynx erythematous without lesions. Tonsils not enlarged and without exudate, no drooling, no hoarseness, no trismus, uvula midline. NECK: Supple. No lymphadenopathy CHEST: Clear to auscultation, breath sounds equal. No wheezing, rhonchi, rales, or stridor. No respiratory distress, speaks in full sentences.positive cough, SAO2 98% on room. HEART: Regular ra
== END 2023-02-28 13:32 | disposition home or self-care (01) ==
PROVIDERS: Emergency Provider Registered Nurse
DX: J06.9 Acute upper respiratory infection, unspecified (principal); R05.1 Acute cough; J44.9 Chronic obstructive pulmonary disease, unspecified; Z20.822 Contact with and (suspected) exposure to COVID-19
CPT/HCPCS: 87081; 87426; 87804; 87880; 99213; G0463

== ENCOUNTER 2023-09-15 17:37 | Emergency (ER) | payer OTHER, SELFPAY ==
--- NOTE | 2023-09-15 17:40 | ED.FEMALEGU ---
HPI - Female Genitourinary General Chief complaint: Urogenital-Female Stated complaint: cyst/boil on vagina Time Seen by Provider: 09/15/23 17:46 Source: patient, RN notes reviewed and old records reviewed Mode of arrival: ambulatory Limitations: no limitations History of Present Illness HPI Narrative: 57-year-old female presents to the [facility] with complaints of a herpes outbreak. Vaginal area. Recently diagnosed at [facility] with a UTI, started on hydrocodone, Levaquin and Zofran. States over the last 4-5 days the herpes outbreak has become worse. Does not have her normal is sick leave ear at this time. Related Data Home Medications Medication Instructions Recorded Confirmed albuterol sulfate 90 mcg/actuation 2 puff inhalation Q4-6H PRN 05/13/21 09/15/23 aerosol inhaler Shortness Of Breath Or Wheezing levofloxacin 500 mg tablet 500 mg DIRECTED 09/15/23 09/15/23 ondansetron 4 mg disintegrating 4 mg DIRECTED 09/15/23 09/15/23 tablet Allergies Allergy/AdvReac Type Severity Reaction Status Date / Time amoxicillin Allergy Unknown hives Verified 02/28/23 13:09 Review of Systems Review of Systems: All systems reviewed & are unremarkable except as noted in HPI and below Constitutional: Constitutional: Reports no additional constitutional complaints Eyes: Eyes: Reports no additional eye complaints ENT: Reports system reviewed and no additional complaints, except as documented Cardiovascular: Cardiovascular: Reports no additional cardiovascular complaints, Denies chest pain and Denies dyspnea Respiratory: Respiratory: Reports no additional respiratory complaints, Denies chest congestion, Denies cough and Denies dyspnea Gastrointestinal: Gastrointestinal: Reports no additional gastrointestinal complaints, Denies abdominal pain, Denies nausea and Denies vomiting Genitourinary: Genitourinary: Reports as per HPI Musculoskeletal: Musculoskeletal: Reports no additional musculoskeletal complaints Integumentary/Breasts: Skin/Breast: Reports system reviewed and no additional complaints, except as docu Neurologic: Reports system reviewed and no additional complaints, except as documented Psychiatric: Psychiatric: Reports no additional psychiatric complaints Allergic/Immunologic: Allergic/Immunologic: Reports no additional allergic/immunologic complaints PMFSH Past Medical History Medical History Anxiety and depression COPD (chronic obstructive pulmonary disease) GERD (gastroesophageal reflux disease) Kidney stone Surgical History Surgical History H/O: hysterectomy Hx of appendectomy Hx of cholecystectomy At the age of 20 Family History Family History Mother Hiatal hernia Aneurysm Other Diabetes mellitus Hypertension Social History Social History Smoking status: Never smoker Alcohol intake: never Substance use: never Substance use type: does not use Living arrangements: with family Occupation/Education: occupation Additional occupation/education comments: [employer] Gender identity (if verbalized by the patient): Female Spiritual care concerns: No Comments At the time of my signature, I reviewed and agree with the nursing past medical, surgical, social, and family history. There is no relevant family history pertinent to the patient complaint. Exam Const: General: cooperative, healthy appearing, no acute distress, well developed, alert, uncomfortable and well nourished Nutritional Appearance: well nourished and obese Orientation/consciousness: patient oriented x3 Limitations: no limitations HENMT: Head: normal to inspection Ears: hearing grossly normal bilaterally and external ears normal Face/Nose/Sinus: Normal external nose present, Normal
[2023-09-15 17:43] VITALS: BP 150/67; PULSE 110; RESP 16; TEMP 36.8; O2SAT 96
== END 2023-09-15 18:00 | disposition home or self-care (01) ==
PROVIDERS: Emergency Provider Nurse Practitioner
DX: A60.04 Herpesviral vulvovaginitis (principal); J44.9 Chronic obstructive pulmonary disease, unspecified; K21.9 Gastro-esophageal reflux disease without esophagitis
CPT/HCPCS: 99213; G0463

== ENCOUNTER 2024-05-30 11:49 | Emergency (ER) | payer SELFPAY ==
--- NOTE | ~2024-05-30 | XR_ITS ---
XR finger 3rd RT min 2V 05/30/2024 12:14 Indication: Left third finger Procedure: 3 views left third finger Comparison: No prior studies for comparison. Findings: There is a corticated ossific density overlying the dorsal aspect of the third distal phala nx. There is cortical irregularity along the dorsal surface proximally and the distal phalanx, suspic ious for avulsion fracture. Mild soft tissue swelling. No foreign body. Impression: 1: Possible avulsion fracture dorsal base left third distal phalanx. Correlate for tenderness. Reviewed, dictated and finalized at location A. Impression: 1: Possible avulsion fracture dorsal base left third distal phalanx. Correlate for tenderness.
[2024-05-30 12:00] VITALS: BP 131/86; PULSE 75; RESP 20; TEMP 36.4; O2SAT 97
--- NOTE | 2024-05-30 12:05 | ED_ITS ---
HPI - Extremity Problem General Chief complaint: Extremity Problem,Nontraumatic Stated complaint: right finger injury Time Seen by Provider: 05/30/24 12:05 Source: patient, family, RN notes reviewed and old records reviewed Mode of arrival: ambulatory Limitations: no limitations History of Present Illness HPI Narrative: 58 year old female who presents to [facility] care with complaints of throbbing pain to her right middle finger and being unable to bend her finger since yesterday with increased pain today. Patient reports that day before yesterday she hit her finger on countertop when se tripped over her shoes. Patient states that she has applied ice to her finger and has taken some Tylenol without pain relief. No acute swelling or bruising noted to right middle finger nail bed does marilia briskly. MD Complaint: other (right middle finger pain and decreased mobility) Onset (ago): day(s) (since yesterday with increase today) Pain Consistency: constant Severity scale (1-10): 8 Quality: other (throbbing) Exacerbating factors: palpation and other (attempted movement) Related Data Home Medications ?Medication ?Instructions ?Recorded ?Confirmed ?Last Taken ?Type albuterol sulfate 90 mcg/actuation 2 puff inhalation Q4-6H PRN 05/13/21 05/30/24 Unknown History aerosol inhaler Shortness Of Breath Or Wheezing levofloxacin 500 mg tablet 500 mg DIRECTED 09/15/23 09/15/23 Unknown History ondansetron 4 mg disintegrating 4 mg DIRECTED 09/15/23 09/15/23 Unknown History tablet metformin 1,000 mg tablet mg 05/30/24 Unknown History Allergies Allergy/AdvReac Type Severity Reaction Status Date / Time amoxicillin Allergy Unknown hives Verified 05/30/24 12:09 Review of Systems Review of Systems: CONSTITUTIONAL: Denies fever, chills, or sweats. EYES: Denies visual changes, redness, or discharge. ENT: Denies rhinorrhea, congestion, sore throat, or otalgia. CARDIOVASCULAR: Denies chest pain, palpitations, or edema. RESPIRATORY: Denies cough or dyspnea. GASTROINTESTINAL: Denies abdominal pain, nausea, vomiting, or diarrhea. GENITOURINARY: Denies dysuria or hematuria. SKIN: Denies rash or itching. MUSCULOSKELETAL: Denies back pain,positive for pain to her right middle finger with inability to bend finger. or myalgia. NEUROLOGIC: Denies headache, numbness, or weakness. PSYCHIATRIC: Denies anxiety or depression. All systems reviewed & are unremarkable except as noted in HPI and below PMFSH Past Medical History Medical History Diabetes COPD (chronic obstructive pulmonary disease) Kidney stone Anxiety and depression GERD (gastroesophageal reflux disease) Surgical History Surgical History H/O: hysterectomy Hx of cholecystectomy At the age of 20 Hx of appendectomy Family History Family History Mother Hiatal hernia Aneurysm Other Diabetes mellitus Hypertension Social History Social History Smoking status: Never smoker Alcohol intake: never Substance use: never Substance use type: does not use Living arrangements: with family Occupation/Education: occupation Additional occupation/education comments: [employer] Gender identity (if verbalized by the patient): Female Spiritual care concerns: No Comments At time of signature, agree with nursing past medical, surgical, social and family history. There is no relevant family history pertinent to the presenting complaint Exam Narrative: GENERAL: Well-appearing, well-nourished, and in no acute distress. HEAD: Normocephalic, atraumatic. EYES: PERRLA and EOMI. ENT: Nares clear, no rhinorrhea or epistaxis. Mucous membranes moist TM's normal throat paink with no swelling. NECK: Supple. no lymphadenopathy CHEST: Clear to auscultation. No respiratory distress. SAO2 97% on room air HEART: Regular rate and rhythm. No murmur heard. Normal peripheral pulses. ABDOMEN: Soft, nontender, nondistended, normal active bowel sounds. EXTREMITIES: unable to move finger due to pain, decreased range of motion. positive for mild edema no bruising nail bed blanches briskly right middle finger SKIN: Warm, dry, no rash. NEURO: No focal deficits. Alert and oriented x3. Course Course Emergency Course: Patient is aware of diagnosis, understands and agrees to treatment plan.? Antici patory guidance given.? Patient agrees to follow-up as directed and is aware of reasons to seek care at the emergency department. Portions of this record may have been created with voice recognition software Level of Care: Express Care Visit Vital Signs Vital signs: Vital Signs Temperature 36.4 C 05/30/24 12:00 Pulse Rate 75 05/30/24 12:00 Respiratory Rate 20 05/30/24 12:00 Blood Pressure 131/86 05/30/24 12:00 Pulse Oximetry 97 05/30/24 12:00 Oxygen Delivery Room Air 05/30/24 12:00 Temperature 36.4 C 05/30/24 12:00 Pulse Rate 75 05/30/24 12:00 Respiratory Rate 20 05/30/24 12:00 Blood Pressure 131/86 05/30/24 12:00 Pulse Oximetry 97 05/30/24 12:00 Oxygen Delivery Room Air 05/30/24 12:00 Reviewed Procedures Other Procedure Procedure 1: Other Procedure: 1240 metal finger splint applied to right middle finger and secured with Coban, ice in place to right middle finger. MDM - Extremity (Nontraumatic) Imaging Data Attestation: I personally reviewed and interpreted this imaging study as follows: My impression: Avulsion fracture of dorsal base distal right middle phalanx,mild soft tissue swelling Radiologist's impression: [facility] [place] [facility] [place] [id number] XRay Report Signed Patient: Melissa Mensah : 1965 MR#: [id number] Age: 58 Acct:[id number] Loc: [facility] ADM Date: 05/30/24Attending Dr: Ordering Physician: Antonina Hopson APRN Date of Service: 05/30/24 Procedure(s): XR finger 3rd RT min 2V Accession Number(s): [id number] cc: Antonina Hopson APRN; UNKNOWN,DOCTOR~ XR finger 3rd RT min 2V 05/30/2024 12:14 Indication: Left third finger Procedure: 3 views left third finger Comparison: No prior studies for comparison. Findings: There is a corticated ossific density overlying the dorsal aspect of the third distal phalanx. There is cortical irregularity along the dorsal surface proximally and the distal phalanx, suspicious for avulsion fracture. Mild soft tissue swelling. No foreign body. Impression: 1: Possible avulsion fracture dorsal base left third distal phalanx. Correlate for tenderness. Reviewed, dictated and finalized at location A. Please be advised this is a medical document. It is intended for [id number] communication. It is written in medical language and may contain unfamiliar abbreviations or verbiage. Medical documents are intended to carry relevant information, facts as evident, and the clinical opinion of the practitioner at the time of the encounter. This report may have been done utilizing a voice recognition system. Attempts have been made to correct errors. However, there may be uncorrected grammatical, spelling, and recognition errors present. The file time of this note does not necessarily represent the time of service. Dictated By: Blaine Wang MD 05/30/24 1217 Signed By: <Electronically signed by Blaine Wang MD in OV> Critical Care Time Critical Care Time Critical Care Time: No Discharge Plan Discharge Clinical Impression: Closed avulsion fracture of distal phalanx of finger Qualifiers: Encounter type: initial encounter Qualified Code(s): S62.639A - Displaced fracture of distal phalanx of unspecified finger, initial encounter for closed fracture Patient Disposition: Home Condition: Stable Instructions: Antibiotic Form, Avulsion Fracture (ED) Additional Instructions: orthopedic splint as directed until seen by Ortho Tylenol for lesser pain Ibuprofen regularly for the next 2-3 days for the inflammation Use the medication as provided for severe pain--caution each tablet contains 325 mg of Tylenol--the maximum dose of Tylenol is 4000 mg in 24 hours. This medication may cause constipation consider starting a laxative at this time Follow-up with orthopedic surgeon Dr. Nguyễn Simpson who is on-call ortho call office at [phone] to set up appointment Follow-up with PCP if further problems or concerns Ice to the area 20-30 minutes 4-6 times a day Elevate above heart If your symptoms persist, change or worsen significantly before you can contact your personal physician then please, without delay, go to the emergency department for further evaluation. Follow-up with PCP in 7-10 days or sooner if needed Follow up with PCP soon in regards to your blood pressure which is elevated above threshold for referral. Blood pressure above 120/80 may indicate pre- hypertension. 131/86 Patient Language: Khmer Prescriptions: New acetaminophen-codeine 300-30 mg tablet 1 tablet PO Q6H PRN (Reason: pain) Qty: 10 0RF No Action levofloxacin 500 mg tablet 500 mg DIRECTED ondansetron 4 mg tablet,disintegrating 4 mg DIRECTED acyclovir 400 mg tablet 800 mg PO TID 5 Days Qty: 30 0RF albuterol sulfate 90 mcg/actuation HFA aerosol inhaler 2 puff INHALATION Q4-6H PRN (Reason: Shortness Of Breath Or Wheezing) metformin 1,000 mg tablet Follow-up/Referrals: UNKNOWN,DOCTOR [Primary Care Provider] - Stand Alone Forms: Work/School Release IP Time of Disposition: 12:40 Quality [place] Coma Scale Eyes: Open Verbal: Oriented and Alert Motor: Follows Commands [place] Coma Total Score: 15
--- OUTSIDE RECORDS SUMMARY | 2024-05-30 12:31 | XMS_ITS | Encounter Summary ---
Author Organization [facility] Address [address] [facility] [place] [address] Phone Care Team Providers Care Jacquard Fixer Name Role Phone Bettina Finley MD Primary Care Provider Michael Patel MD Unavailable Reason for Visit * Reason Comments Medication Refill Encounter Details Date Type Department Care Team (Late st Contact Info) Description 12/02/2022 Refill [facility] Med Surg [address] [place] [address] [phone] Michael Patel MD [address] [id number] Medication Refill Social History Tobacco Use Types Packs/Day Years Used Date Smoking Tobacco: Never Smokeless Tobacco: Never Alcohol Use Standard Drinks/Week Comments No 0 (1 standard drink = 0.6 oz pur e alcohol) Sexually Active Control Partners Comments Not Currently Surgical Male Comments No Sex and Gender Information Value Date Recorded Sex Assigned at Not on file Legal Sex Female 10:56 PM CDT Gender Identity Not on file Sexual Orientation Not on file 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 No / Unsure 11/11/2022 8:17 AM CDT documented as of this encounter Plan of Treatment Not on file documented as of this encounter Visit Diagnoses Not on filedocumented in this encounter Care Teams Jacquard Fixer Relationship Specialty Start Date End Date Bettina Finley MD [address] [place] [address] [address] [place] [address] PCP - General Family Medicine 02/13/22 Michael Patel MD [address] [facility] [address] [place] [address] Consulting Physician Colon and Rectal Surgery 08/19/22 documented as of this encounter
--- OUTSIDE RECORDS SUMMARY | 2024-05-30 12:31 | XMS_ITS | Clinical Summary ---
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 Gender Identity Not on file Sexual Orientation Not on file Plan of Treatment Health Maintenance Due Date Last Done Comments Cervical Cancer Screening Pa p Smear (Age 30 to 64) Every 3 Years 1965 Colorectal Cancer Screening Colonoscopy (10 Years) 1965 Annual Physical 10/24/1970 Hepatitis C 10/24/1985 DTaP, Tdap and Td Vaccines ( 1 - Tdap) 10/24/1986 Hepatitis B Vaccines (1 of 3 - 19+ 3-dose series) 10/24/1986 Cervical Cancer Screening Pa p with HPV Testing (Age 30 to 64) Every 5 Years 10/24/1997 Cervical Cancer Screening with HPV 10/24/1997 Mammogram Screening 2007 Zoster Vaccines (1 of 2) 10/24/2017 COVID-19 Vaccine (2023-2 5 season) 2023 Meningococcal B Vaccine Aged Out No l onger eligible based on patient's age to complete this topic Meningococcal Vaccine Aged Out No mauro leandro eligible based on patient's age to complete this topic Pneumococcal Vaccine: Pediat rics (0 to 5 Years) and At-Risk Patients (6 to 64 Years) Aged Out No longer eligible b ased on patient's age to complete this topic RSV Immunizations Under 20 Months Aged Out No longer eligible based on patient's age to complete this topic
--- OUTSIDE RECORDS SUMMARY | 2024-05-30 12:31 | XMS_ITS | Referral Summary ---
Author Organization [facility] Address [address] [place] [address] Care Team Providers Care Security Guard Supervisor Name Role Phone Bettina Finley MD Primary Care Provider [phone] Allergies Active Allergy Reactions Criticality Noted Date Comments Amoxicillin Rash,Other (See comments) Medium Reaction: Hives, , , Reaction: rash, Esomeprazole Itching Low 05/03/2021 Medications albuterol HFA (PROVENTIL HFA,VENTOLIN HFA,PROAIR HFA) 90 mcg/actuation inhaler albuterol sulfate HFA 90 mcg/actuation aerosol inhaler Active ondansetron ODT (ZOFRAN-ODT) 4 mg disintegrating tablet Take 1 tablet (4 mg total) by mouth every 8 (eight) hours as needed for nausea or vomiting 20 tablet 09/12/19 24 Active acetaminophen (TYLENOL) 650 mg suppository Insert 1 suppository (650 mg total) into the rectum every 4 (four) hours as needed for pain Active budesonide-formote roL (SYMBICORT) 160-4.5 mcg/actuation inhaler Inhale 2 puffs 2 (two) times a day Rinse mouth with water after use. Do not swallow. 1 each 2 09/20/19 24 Active polyethylene glycol (MIRALAX) 17 gram/dose bulk powderIndications: constipation Take 17 g by mouth daily 510 g 1 09/20/19 Active metFORMIN (GLUCOPHAGE) 500 mg tablet Take 1 tablet (500 mg total) by mouth 2 (two) times a day with meals 60 tablet 09/20/19 Active blood-glucose meter kit Use as directed. 1 kit 09/20/19 Active blood glucose diagnostic (glucose blood) strip Use as directed up to four times a day. 100 each 1 09/20/19 Active lancets misc Use as directed up to 4 times a day. 100 each 1 09/20/19 Active alcohol swabs (Alcohol Wipes) pads, medicated Use as directed. 100 each 09/20/19 Active Active Problems Problem Noted Date Diagnosed Date Hyperglycemia 09/18/2023 Glucosuria 09/18/2023 Obesity 09/18/2023 Hepatic steatosis 09/18/2023 Abnormal transaminases 09/18/2023 COPD (chronic obstructive pulmonary disease) HSV (herpes simplex virus) infection 09/18/2023 Type 2 diabetes mellitus, wi thout long-term current use of insulin 09/18/2023 Trixie vaginitis 09/18/2023 Pyelonephritis 09/18/2023 Abdominal pain 09/18/2023 Intractable abdominal pain 09/17/2023 Vitamin D deficiency 11/26/2018 Impaired cognitive ability 11/24/2018 Nonintractable headache 11/24/2018 Numbness of left hand 11/24/2018 Medical examinations/reports status 04/10/2014 Overview (05/26/2016): Healthy adult on routine physical examination Depression 02/19/2013 Overview (05/25/2016): Depression Genital herpes simplex 02/19/2013 Overview (05/25/2016): Genital herpes Gastroesophageal reflux disease 02/19/2013 Overview (05/27/2016): GERD (gastroesophageal reflux disease) Menorrhagia with irregular cycle 12/25/2012 Overview (05/27/2016): Menorrhagia with irregular cycle Resolved Problems Problem Noted Date Diagnosed Date Resolved Date Antibiotic-associated diarrhea 09/20/2023 09/20/2023 Immunizations Immunization Administration Dates Next Due Influenza, Unspecified 10/24/2018 Social History Tobacco Use Types Packs/Day Years Used Date Smoking Tobacco: Never Smokeless Tobacco: Never Tobacco Cessation:Counseling Given: Not Answered Alcohol Use Standard Drinks/Week Comments No 0 (1 standard drink = 0.6 oz pur e alcohol) [facility] Utilities Answer Date Recorded In the past 12 months has th e electric, gas, oil, or water company threatened to shut off services in your home? No 09/18/2023 Social Connection and Isolation Panel [NHANES] A nswer Date Recorded In a typical week, how many times do you talk on the phone with family, friends, or neighbors? Three times a week 09/18/2023 How often do you get togethe r with friends or relatives? Twice a week 09/18/2023 How often do you attend chur ch or restorationist services? Never 09/18/2023 Do you belong to any clubs o r organizations such as yazdanism groups, unions, fraternal or athletic groups, or school groups? No 09/18/2023 How often do you attend meet ings of the clubs or organizations you belong to? Never 09/18/2023 Are you , , di vorced, , never , or living with a partner? 09/18/2023 AUDIT-C Answer Date Recorded Q1: How often do you have a drink containing alcohol? Never 05/01/2023 Q2: How many drinks containi ng alcohol do you have on a typical day when you are drinking? Patient does not drink Frequency of Binge Drinking Not on file 04/20 Overall Financial Resource Strain (CARDIA) Answe r Date Recorded How hard is it for you to pa y for the very basics like food, housing, medical care, and heating? Somewhat hard 09/18/2023 PHQ-2 Answer Date Recorded PHQ-2 Score 0 11/24/2018 Hunger Vital Sign Answer Date Recorded Within the past 12 months, y ou worried that your food would run out before you got the money to buy more. Never true 09/18/19 24 Within the past 12 months, t he food you bought just didn't last and you didn't have money to get more. Never true 09/18/2023 PRAPARE - Transportation Answer Date Re corded In the past 12 months, has l ack of transportation kept you from medical appointments or from getting medications? No 08/21 In the past 12 months, has l ack of transportation kept you from meetings, work, or from getting things needed for daily living? Yes 09/18/2023 Housing Stability Vital Sign Answer Donnie e Recorded In the last 12 months, was t here a time when you were not able to pay the mortgage or rent on time? No 09/18/2023 In the past 12 months, how m any times have you moved where you were living? 0 09/18/2023 At any time in the past 12 m [facility], were you homeless or living in a alf (including now)? No 09/18/2023 Personal Safety Answer Date Recorded Have you ever been in or are you currently in a harmful physical or emotional relationship or is someone making you feel afraid or unsafe? Denies 09/17/2023 Comments No Sex and Gender Information Value Date Recorded Sex Assigned at Not on file Legal Sex Female 11:49 PM FLAME DEGREASER Gender Identity Not on file Sexual Orientation Not on file Last Filed Vital Signs Vital Sign Reading Time Taken Comments Blood Pressure 150/90 09/20/2023 8:08 AM CDT Pulse 63 09/20/2023 8:08 AM CDT Temperature 36.2 C (97.1 F) 09/20/2023 8:08 AM CDT Respiratory Rate 20 09/20/2023 8:08 AM CDT Oxygen Saturation 96% 09/20/2023 8:30 AM CDT Inhaled Oxygen Concentration - - Weight 95.3 kg (210 lb) 09/17/2023 8:32 PM CDT Height 165.1 cm (5' 5 ) 09/17/2023 8:32 PM CDT Body Mass Index 34.95 09/17/2023 8:32 PM CDT Plan of Treatment Not on file Procedures Procedure Name Priority Date/Time Associated Diagnosis Comments EGFR Routine 09/20/2023 2:17 AM CDT HEPATITIS PANEL, ACUTE Routine 09/18/2023 1:41 AM CDT HEMOGLOBIN A1C Routine 09/17/2023 2:03 PM CDT LIPID PANEL Routine 11/25/2018 3:58 AM CDT THINPREP PAP WITH HPV, HIGH RISK Routine 12/27/2012 3:19 PM FLAME DEGREASER from Last 3 Months or Most Recently Relevant to Health Maintenance Results * eGFR (09/20/2023 2:17 AM CDT) eGFR >90 >=60 mL/min/1. 73 m2 Comment: Interpretive Data Reference Interval Normal >/= 90 mL/min/1.73m2 Mildly decreased* 60 - 89 mL/min/1.73m2 Mildly to moderately decreased 45 - 59 mL/min/1.73m2 Moderately to severely decreased 30 - 44 mL/min/1.73m2 Severely decreased 15 - 29 mL/min/1.73m2 Kidney Failure < 15 mL/min/1.73m2 *Relative to young adult level Estimated glomerular filtration rate is determined by the 2020 CKD-EPI equation recommended by the National Kidney Foundation (A Unifying Approach to GFR Estimation: Recommendations of the NKF-ASK Task Force on Reassessing the Inclusion of Race in Diagnosing Kidney Disease, JASN 2020). The CKD-EPI equation should not be used for patients with unstable renal function and has not been validated in children and those over 70. Current interpretive data was last reviewed 2020. Blood 09/20/2023 2:17 AM CDT 09/20/2023 3:03 AM CDT us Vladimir Blue Jr., MD LAB BLOOD ORDERABLE S Final Result [facility] ([address] [facility]) [address] [facility] Department [place] [address] * Hepatitis panel, acute Blood (09/18/2023 1:41 AM CDT) Hep A IgM Nonreactive Nonreactive Comment: Interpretive Data: If Hep A IgM Ab is reported as Equivocal, a new sample should be drawn in two weeks for testing. Current interpretive data was last revised on 19. Testing performed by: [address] [address] Hep B core IgM Nonreactive Nonreactive C [facility] ([facility]) Comment: Interpretive Data If HepB Core IgM Ab is reported as Equivocal, a new sample should be drawn in two weeks for testing. Current interpretive data was last revised on 19. Testing performed by: [facility], [address] [place] [address]., [id number] Hep C Ab Nonreactive Nonreactive [facility] ([facility]) Comment: Interpretive Data Nonreactive: Antibodies to HCV not detected. Does NOT exclude the possibility of recent exposure to HCV. Equivocal: Equivocal for HCV antibodies. Supplemental molecular testing will be automatically performed to determine infection status in accordance with current CDC screening recommendations. Reactive: Positive for HCV antibodies. This may represent current or past HCV infection. Supplemental molecular testing will be automatically performed to determine current infection status in accordance with current CDC screening recommendations. Interpretive data was last revised on 2019. Testing performed by: [facility], [address] [place] [address]., [id number] HepBsAg Nonreactive Nonreactive [facility] ([facility]) Comment:Testing performed by : [address] [address] Blood 09/18/2023 1:41 AM CDT 09/18/2023 8:59 AM CDT Alekmichael Hernandez Baudilio DO LAB MICROBIOLOGY - GEN ERAL ORDERABLES Final Result [facility] ([facility]) [address] [facility] Department [place] [address] * (ABNORMAL) Hemoglobin A1c (09/17/2023 2:03 PM CDT) Hgb A1C 11.9(H) 4.0 - 5.6 % Estimated Average Glucose 295 mg/dL [facility] ([facility]) Comment: The ADA recommends reporting an estimated Average Glucose (eAG) with all Hemoglobin A1c results using the equation derived from a study of 507 normal and diabetic adults. Minority populations were underrepresented and children were not included. (Diabetes Care 31:5825-4336, 2008). The eAG is not equivalent to a fasting glucose. Blood 09/17/2023 2:03 PM CDT 09/17/2023 10:34 PM CDT Alek Astudillo DO LAB BLOOD ORDERABLES F inal Result [facility] ([facility]) [address] [facility] Department [place] [address] * Lipid panel (11/25/2018 3:58 AM CDT) Cholesterol 186 30 - 199 mg/dL [facility] ([facility]) Comment: Interpretive Data Ages < or = 19 years Acceptable: <170 mg/dL Borderline high: 170-199 mg/dL High: >or= 200 mg/dL Ages > or = 20 years Desirable: <200 mg/dL Borderline high: 200-239 mg/dL High: >or= 240 mg/dL Literature References: 1. Expert Panel on Integrated Guidelines for Cardiovascular Health and Risk Reduction in Children and Adolescents. Pediatrics 2011;128:S213 2. NCEP Expert Panel. Circulation 2004;110:227 Current Interpretive Data was last revised on 2017. Triglycerides 84 <=149 mg/dL [facility] ([facility]) Comment: Interpretive Data Ages < or = 9 years Acceptable: <75 mg/dL Borderline high: 75-99 mg/dL High: >or= 100 mg/dL Ages 10 to 20 years Acceptable: <90 mg/dL Borderline high: 90-129 mg/dL High: >or= 130 mg/dL Ages > or = 20 years Desirable: <150 mg/dL Borderline high: 150-199 mg/dL High: 200-499 mg/dL Very high: >or= 499 mg/dL Literature References: 1. Expert Panel on Integrated Guidelines for Cardiovascular Health and Risk Reduction in Children and Adolescents. Pediatrics 2011;128:S213 2. NCEP Expert Panel. Circulation 2004;110:227 Current Interpretive Data was last revised on 2017. HDL 72 >=40 mg/dL [facility]iqu[facility] ([facility]) Comment: Interpretive Data Ages < or = 19 years Acceptable: >45 mg/dL Borderline low: 40-45 mg/dL Low: <40 mg/dL Ages > or = 20 years Desirable: >or= 60 mg/dL Low: <40 mg/dL Literature References: 1. Expert Panel on Integrated Guidelines for Cardiovascular Health and Risk Reduction in Children and Adolescents. Pediatrics 2011;128:S213 2. NCEP Expert Panel. Circulation 2004;110:227 Current Interpretive Data was last revised on 2017. LDL, calculated 97 <=129 mg/dL [facility] ([facility]) Comment: Interpretive Data Ages < or = 19 years Acceptable: <110 mg/dL Borderline high: 110-129 mg/dL High: >or= 130 mg/dL Ages > or = 20 years Optimal: <100 mg/dL Near optimal: 100-129 mg/dL Borderline high: 130-159 mg/dL High: >160 mg/dL Literature References: 1. Expert Panel on Integrated Guidelines for Cardiovascular Health and Risk Reduction in Children and Adolescents. Pediatrics 2011;128:S213 2. NCEP Expert Panel. Circulation 2004;110:227 Current Interpretive Data was last revised on 2017. Non-HDL Cholesterol 114 mg/dL [facility] ([facility]) Comment: Interpretive Data Ages < or = 19 years Acceptable: <120 mg/dL Borderline high: 120-144 mg/dL High: >145 mg/dL Ages > or = 20 years When triglycerides are >200 mg/dL, Non-HDL cholesterol is a secondary target of therapy with treatment goals that are 30 mg/dL greater than the LDL cholesterol target. Literature References: 1. Expert Panel on Integrated Guidelines for Cardiovascular Health and Risk Reduction in Children and Adolescents. Pediatrics 2011;128:S213 2. NCEP Expert Panel. Circulation 2004;110:227 Current Interpretive Data was last revised on 2017. Chol/HDL ratio 3 [facility] ([facility]) Blood specimen (specimen) 11/25/2018 3:58 AM CDT 11/25/2018 4:52 AM CDT us Anitra Ocampo MD LAB BLOOD ORDERABLES Fin al Result [facility] ([facility]) [address] [place], [place] [id number] * ThinPrep Pap with HPV, High Risk (12/27/2012 3:19 PM FLAME DEGREASER) SOURCE: SEE NOTE [facility] RES[facility] Comment:Information not prov ided CLINICAL INFORMATION: SEE NOTE [facility] RES[facility] Comment:Normal exam LMP SEE NOTE [facility] RESULTS Comment:12/11/12 Previous Pap SEE NOTE [facility] RES[facility] Comment:INFORMATION NOT PROV IDED Prev. Bx SEE NOTE [facility] RESULTS Comment:INFORMATION NOT PROV IDED Pap, specimen adequacy SEE NOTE [facility] RESULTS Comment: Satisfactory for evaluation. Endocervical/transformation zone component present. HPV interp SEE NOTE [facility] RESULTS Comment:Negative for intraep ithelial lesion or malignancy. Lactobacillus species SEE NOTE [facility]ISTOR[facility] RESULTS Comment: This Pap test has been evaluated with computer assisted technology. Instrument Tech SEE NOTE [facility] HISTORICAL RESULTS Comment: CHRISTINE, CT(ASCP) Test performed at [facility] [address] Director: ELISA SANZ DO, MPH 12/27/2012 3:19 PM FLAME DEGREASER Shannan Capps NP LAB PATHOLOGY ORDERABLES F inal Result [facility]ISTORICAL RESULTS from Last 3 Months or Most Recently Relevant to Health Maintenance Insurance [facility] [employer] [place] Advance Directives For more information, please contact: [phone] * LIMITED - No CPR (Latest Code Status on File) Date Activated Date Inactivated Comments 09/17/2023 10:07 PM 09/20/2023 5:25 PM Question Answer Comments Provide aggressive medical m anagement before a full cardiopulmonary arrest occurs. Use antibiotics, IV Fluids, and medical treatment unless specifically selected below: No intubation * Full Code Date Activated Date Inactivated Comments 09/17/2023 6:19 PM 09/17/2023 10:07 PM * Full Code Date Activated Date Inactivated Comments 05/01/2023 11:42 AM 05/01/2023 5:44 PM * LIMITED - No CPR Date Activated Date Inactivated Comments 05/23/2022 8:52 AM 05/23/2022 3:08 PM * Full Code Date Activated Date Inactivated Comments 05/23/2022 8:39 AM 05/23/2022 8:51 AM Care Teams Security Guard Supervisor Relationship Specialty Start Date End Date Bettina Finley MD [address] [place] [address] [address] PCP - General Family Medicine 12/08/21
--- OUTSIDE RECORDS SUMMARY | 2024-05-30 12:31 | XMS_ITS | Clinical Summary ---
Author Organization [facility] Address [address] [facility] [address] Care Team Providers Care Cnc Maintenance Mechanic Name Role Phone Unavailable Primary Care Provider Unavailabl e Social History Tobacco Use Types Packs/Day Years Used Date Smoking Tobacco: Never Assessed Comments Unknown Sex and Gender Information Value Date Recorded Sex Assigned at Not on file Legal Sex Female 9:47 AM CDT Gender Identity Not on file Sexual Orientation Not on file Plan of Treatment Health Maintenance Due Date Last Done Comments DTAP/TDAP/TD VACCINES (1 - Tdap) 10/24/1986 HEPATITIS B VACCINES (1 of 3 - 19+ 3-dose series) 10/24/1986 HPV/Cotest (21-29) 10/24/1988 PAP SMEAR 10/24/1988 CERVICAL CANCER SCREENING 10/24/1997 HPV/Cotest (30-65) 10/24/1997 PAP SMEAR 10/24/1997 BREAST CANCER SCREENING 2007 COLORECTAL SCREENING 10/24/2012 Colorectal Cancer Screening 10/24/2012 FIT-DNA Q 3 years 10/24/2012 FIT/FOBT Q 1 year 10/24/2012 Flex Sig/CT Colonography Q 5 years 10/24/2012 ZOSTER VACCINE (1 of 2) 10/24/2017 INFLUENZA VACCINE (#1) 2023 PNEUMOCOCCAL VACCINE 0-49 YEARS Aged Out No longer eligible based on patient's age to complete this topic
--- OUTSIDE RECORDS SUMMARY | 2024-05-30 12:31 | XMS_ITS | Clinical Summary ---
Author Organization [facility] Address [address] [place] [address] Care Team Providers Care Mixing Plant Dumper Name Role Phone Bettina Finley MD Primary Care Provider Allergies Active Allergy Reactions Criticality Noted Date [...] Administration Dates Next Due Influenza, Unspecified 10/24/2018 Surgical History Surgery Date Site/Laterality Comments OTHER SURGICAL HISTORY 2010 Cholelithiasis: laparoscopic cholecystectomy OTHER SURGICAL HISTORY Sterilization : Laparoscopic BTL OTHER SURGICAL HISTORY Menometrorrhagia: TLH SC LIG/TRNSXJ FLP TUBE ABDL/ VAG APPR UNI/BI Tubal Ligation - (Added by TW Conv) SC CHOLECYSTECTOMY Cholecystectomy - (Added by TW Conv) SC TOTAL ABDOMINAL HYSTERECT W/WO RMVL TUBE OVARY Hysterectomy - (Added by TW Conv) UPPER GASTROINTESTINAL ENDOSCOPY Medical History Medical History Date Comments Hx Other Medical PUD Gastroesophageal reflux disease GERD Hx Other Medical Headache, migra ine Hx Other Medical Migraines Cholelithiasis 2009 Cholelithiasis Hx Other Medical Sterilization Hx Other Medical 2014 Menometrorrhagi a Personal history of other di seases of the digestive system History of esophageal reflux - (Added by TW Conv) Personal history of other me ntal and behavioral disorders History of depression - (Add ed by TW Conv) Personal history of diseases of the blood and blood-forming organs and certain disorders involving the immune mechanism History of iron deficiency a nemia - (Added by TW Conv) Personal history of other in fectious and parasitic diseases History of herpes genitalis - (Added by TW Conv) Paresthesia of skin Paresthesia - (Added by TW Conv) Personal history of malignan t neoplasm of breast History of malignant neoplas m of breast - (Added by TW Conv) Personal history of other di seases of the female genital tract History of dysfunctional [place] rine bleeding - (Added by TW Conv) Dysphagia COPD (chronic obstructive pu lmonary disease) (HCC) Arthritis Family History Medical History Relation Name Comments ADD / ADHD Daughter 1 Family history of attention deficit hyperactivity disorder (ADHD) - (Added by TW Conv) Bipolar disorder Daughter 2 Bipolar dis order - (Added by TW Conv) Asthma Daughter 3 Family history of asthma - (Added by TW Conv) Lung cancer Father Family history of lung cancer - (Added by TW Conv) Other Father Alive and well; Breast cancer Maternal Grandmother Cancer , breast; Colon cancer Maternal Grandmother Lung cancer Maternal Grandmother Family history of lung cancer - (Added by TW Conv) Breast cancer Mother Cancer, breast ; Cause of : Cancer, breast Lung cancer Mother Family history of lung cancer - (Added by TW Conv) Other Mother Alive and well; Allergies Other 1 Family history of Allergies; Diabetes Other 2 Family history of Diabetes mellitus; Hypertension Other 3 Family history of Hypertension; Relation Name Status Comments Daughter 1 Daughter 2 Daughter 3 Father Alive Maternal Grandmother Alive Mother (Age 63) Other 1 Other 2 Other 3 Social History Tobacco Use Types Packs/Day Years Used Date Smoking Tobacco: Never Smokeless Tobacco: Never Tobacco Cessation:Counseling Given: Not Answered Alcohol Use Standard Drinks/Week Comments No 0 (1 standard drink = 0.6 oz pur e alcohol) [facility] Utilities Answer Date Recorded In the past 12 months has th e electric, gas, oil, or water Utility Scale [employer] threatened to shut off services in your [...] often do you attend chur ch or mosque services? Never 09/18/2023 Do you belong to any clubs o r organizations such as baptism groups, unions, fraternal or athletic groups, or [...] any time in the past 12 m [facility], were you homeless or living in a custodial (including now)? No 09/18/2023 Personal Safety Answer Date Recorded Have you ever been in or are you currently in a harmful physical or emotional relationship or is someone making you feel afraid or unsafe? 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 Gender Identity Not on file Sexual Orientation Not on file Obstetrics History Last Filed Vital Signs Vital Sign Reading [...] 09/17/2023 8:32 PM CDT Plan of Treatment Health Maintenance Due Date Last Done Comments Albumin Creatinine Ratio, Urine 1967 Breast Cancer Screening-Mammogram 1967 Colon Cancer Screening-Colonoscopy 1967 Dilated Eye Exam 1967 Foot Exam 1967 DTaP/Tdap/Td Vaccine (1 - Tdap) 10/24/1978 Hepatitis B Screening 10/24/1985 Regular Well Visit/Exam 18-64 10/24/1985 Pneumococcal vaccine <65 (1 of 2 - PCV) 10/24/1986 Zoster Vaccine (1 of 2) 10/24/2017 Depression Screening 11/25/2019 11/24/2018, 11/25/19 19 Lipid Panel 11/26/2019 11/25/2018, 04/23/2014 Hemoglobin A1C 03/19/2024 09/17/2023 eGFR 09/19/2024 09/20/2023, 07, 09/17/2023, Additional history exists Influenza Vaccine (Season Ended) 2024 10/25/19 19 Cervical Cancer Screening Discontinued 12/27/2012, 08/2012 Hepatitis C Screening Completed 09/18/2023, 024 Procedures Procedure Name Priority Date/Time Associated Diagnosis Comments EGFR Routine 09/20/2023 2:17 AM CDT HEPATITIS PANEL, ACUTE Routine 09/18/2023 1:41 AM CDT HEMOGLOBIN A1C Routine 09/17/2023 2:03 PM CDT LIPID PANEL Routine 11/25/2018 3:58 AM CDT THINPREP PAP WITH HPV, HIGH RISK Routine 12/27/2012 3:19 PM VEHICLE INSPECTOR from Last 3 Months or Most Recently [...] MD LAB BLOOD ORDERABLE S Final Result RICH FINK (BRANDI) 1 [facility] Department [place] [address] * Hepatitis panel, acute Blood (09/18/2023 1:41 AM CDT) Hep A IgM Nonreactive Nonreactive Comment: Interpretive Data: If Hep A IgM Ab is reported as Equivocal, a new sample should be drawn in two weeks for testing. Current interpretive data was last revised on 19. Testing performed by: [address] [address] Hep B core IgM Nonreactive Nonreactive Franck FINK (BRANDI) Comment: Interpretive Data If HepB Core IgM Ab is reported as Equivocal, a new sample should be drawn in two weeks for testing. Current interpretive data was last revised on 19. Testing performed by: [address] [address] Hep C Ab Nonreactive Nonreactive RICH FINK [...] last revised on 2019. Testing performed by: [address], [place]., [address] HepBsAg Nonreactive Nonreactive RICH FINK (BRANDI) Comment:Testing performed by : [facility], [address] [place] [address]., [address] Blood 09/18/2023 1:41 AM CDT 09/18/2023 8:59 AM CDT [facility], [facility] LAB MICROBIOLOGY - GEN ERAL ORDERABLES Final Result Performing Organization Address [facility] de Phone Number RICH FINK (BRANDI) [address] [place] [address] * (ABNORMAL) Hemoglobin A1c (09/17/2023 2:03 PM CDT) Hgb A1C 11.9(H) 4.0 - 5.6 % Estimated Average Glucose 295 mg/dL RICH FINK ([place]ANDI) Comment: The ADA recommends reporting an estimated Average Glucose (eAG) with all Hemoglobin A1c results using the equation derived from a study of 507 normal and diabetic adults. Minority populations were underrepresented and children were not included. (Diabetes Care 31:5954-7042, 2008). The eAG is not equivalent to a fasting glucose. Blood 09/17/2023 2:03 PM CDT 09/17/2023 10:34 PM CDT Alek Astudillo DO LAB BLOOD ORDERABLES F inal Result Performing Organization Address [facility] Co de Phone Number RICH FINK (BRANDI) 1 [facility] [place] [address] * Lipid panel (11/25/2018 3:58 AM CDT) [...] Pediatrics 2011;128:S213 2. NCEP Expert Panel. Circulation 2003;110:227 Current Interpretive Data was last revised on 2017. LDL, calculated 97 <=129 mg/dL RICH FINK (BRANDI) Comment: Interpretive Data [...] Pediatrics 2011;128:S213 2. NCEP Expert Panel. Circulation 2003;110:227 Current Interpretive Data was last revised on 2017. Non-HDL Cholesterol 114 mg/dL RICH FINK ([place]) Comment: Interpretive Data Ages < or = [...] on 2017. Chol/HDL ratio 3 DAQUAN FINK ([place]) Blood specimen (specimen) 11/25/2018 3:58 AM CDT 11/25/2018 4:52 AM CDT Anitra Ocampo MD LAB BLOOD ORDERABLES Fin al Result RICH DANAE ([place]) [address] [place] [address] * ThinPrep Pap with HPV, High Risk (12/27/2012 3:19 PM VEHICLE INSPECTOR) SOURCE: SEE NOTE [facility] HISTORICAL RESULTS Comment:Information [...] has been evaluated with computer assisted technology. Debubblizer SEE NOTE [facility] HISTORICAL RESULTS Comment: CHRISTINE, CT(ASCP) Test performed at [facility] [address] Director: ELISA SANZ DO, MPH 12/27/2012 3:19 PM VEHICLE INSPECTOR Shannan Capps NP LAB PATHOLOGY ORDERABLES F inal Result [facility] HISTORICAL RESULTS from Last 3 Months or Most Recently Relevant to Health Maintenance Insurance [facility] [address] [place] [address] [place] [address] [employer] [place] Advance Directives For more information, please contact: [phone] * LIMITED - No CPR (Latest Code [...] 8:39 AM 05/23/2022 8:51 AM Care Teams Mixing Plant Dumper Relationship Specialty Start Date End Date Bettina Finley MD [address] [place] [address] DR [address] [place] [id number] PCP - General Family Medicine 12/08/21
--- OUTSIDE RECORDS SUMMARY | 2024-05-30 12:31 | XMS_ITS | Continuity of Care Document ---
Author Organization [facility] Address [address] [facility] [employer] [facility] [place] [address] Phone Care Team Providers Care Paper Counter Name Role Phone Erickson Liao MD Unavailable Unavailable Allergies, Adverse Reactions, Alerts Substance Reaction Status Criticality OMEPRAZOLE MAGNESIUM Hives / Skin Rash Active No Information omeprazole Hives / Skin Rash Active No Informa tion amoxicillin Hives / Skin Rash Active No Informa tion Medications Medication Instructions Dosage Effective Dates (start - stop) Status Comments metformin 1,000 mg tablet take 1 tablet by oral route 2 times every day with morning and evening meals 1000 MG - Active trazodone 50 mg tablet take 1 tablet by oral route every bedtime after meals 50 MG - Active Basaglar KwikPen U-100 Insulin 100 unit/mL (3 mL) subcutaneous inject by subcutaneous route as per insulin protocol 0.00 - Active 30 units SC BID Ozempic 1 mg/dose (4 mg/3 mL) subcutaneous pen injector inject (1MG) by subcutaneous route every week on the same day of each week 1 MG - Active FreeStyle Kyleigh 3 Plus Sensor device apply to left upper arm every 14 days - Active omeprazole 20 mg capsule,delayed release take 1 capsule by oral route every day before a meal 20 MG - Active Procedures Procedure Date OFFICE/OUTPATIENT VISIT, [facility] Advance Directives Directive Yes / No Effective Date File Name No Information Encounters Encounter Description Practice Location Reason(s) For Visit Diagnoses Date Provider Providers Copied on Encounter OFFICE/OUTPA TIENT VISIT, [facility], [address] [facility] [place], [id number], [place] tel:[phone] [facility] DM (chief complaint) GERD1 (chief complaint) HTN (chief complaint) insomnia1 (chief complaint) Type 2 diabetes mellitus without complicationsEssent ial (primary) hypertensionEsophag itisOther insomnia 5 Keshawn Almendarez. [address], [address], [place], [place], [id number] , [place]. tel:[phone] Family History Family Member Type Diagnosis Age At Onset Mother Problem breast CA 62 Father Problem Diabetes mellitus Mother Problem of aneurysm of brain 65 Father Problem Hypertension Payers Payer name Insurance type Covered libertarian ID Authoramaliaa nohemy(s) [facility] [id number] Social History Type Description Quantity Date Captured Comments Alcohol Use Details No Caffeine Use Details Unknown Tobacco Use Status Current non-smoker Smoking Status Never smoker Non-Smoking Tobacco Use Details : No Details Available : No Details Available Sex Female Vital Signs Date / Time: Height Weight BMI Pulse Rate Blood Pressure Temperature Respiratory Rate Body Surface Area Head Circumference BMI percentile Pulse Ox Inhaled Ox 3:42 PM 64.50 in 215.60 lbs 36.4 4 kg/m eter (2) 80 /min 160/100 mm[Hg] 97.5 F 16 /min Chief Complaint And Reason For Visit From encounter dated '04/30/2024 15:33'. DM (chief complaint). Description: Pt has DM Pt is on basaglar 27 units BID and ozempic 0.25 mg weekly and her glucose is around high 300 and low 400 all the time. Pt denies any polyuria, polydipsia Pt denies any vision change. Pt has not seen PCP for close to one year GERD1 (chief complaint). Description: Pt has history of HH. s/p HH surgery .pt had EGD done one year ago with dilation. Pt does have reflux esophagitis without hall Pt denies any GERD Pt feels nausea sometimes. Pt denies any stevo GERD and she is not on any PPI Pt states that she has some dysphagia sometimes . HTN (chief complaint). Description: Pt has HTN pt denies any chest pain or headache. insomnia1 (chief complaint). Description: Pt has chronic insomnia Pt doing ok with trazodone Plan Of Treatment Date Type Action Status No Information History Of Present Illness Encounter Date Complaint History Of Prese nt Illness HTN Pt has HTN pt de nies any chest pain or headache. insomnia1 Pt has chronic i nsomnia Pt doing ok with trazodone GERD1 Pt has history o f HH. s/p HH surgery .pt had EGD done one year ago with dilation. Pt does have reflux esophagitis without hall Pt denies any GERD Pt feels nausea sometimes. Pt denies any stevo GERD and she is not on any PPI Pt states that she has some dysphagia sometimes . DM Pt has DM Pt is on basaglar 27 units BID and ozempic 0.25 mg weekly and her glucose is around high 300 and low 400 all the time. Pt denies any polyuria, polydipsia Pt denies any vision change. Pt has not seen PCP for close to one year Instructions Date Instruction Additional Infor mation No Information Assessments Type Assessment Date assessment Type 2 diabetes mellitus without complications assessment Essential (primary) hypertension assessment Esophagitis assessment Other insomnia Mental Status Date Cognitive Assessment Orientation - Rollins ed to time, place, person, situation.
--- OUTSIDE RECORDS SUMMARY | 2024-05-30 12:31 | XMS_ITS | Clinical Summary ---
Author Organization [facility] Address [address] [place] [address] Care Team Providers Care Laboratory Animal Care Veterinarian Name Role Phone Unavailable Primary Care Provider Unavailabl e Source Comments [facility],non-owned Affiliates and Associated Physician Practices is amultiple site organization consisting of ambulatory clinics and hospital sitesin [place], [place], [place] and [place]. This disclosure is being madepursuant to the Care Everywhere program and may not contain all information available regarding this patient. Last updated 17.[facility] Social History Tobacco Use Types Packs/Day Years Used Date Smoking Tobacco: Never Assessed Sex and Gender Information Value Date Recorded Sex Assigned at Female 06/11/2021 12:19 PM CDT Gender Identity Female 06/11/2021 12:19 PM CDT Sexual Orientation Not on file Plan of Treatment Health Maintenance Due Date Last Done Comments COLOGUARD (AGES 45-75) - COL ON CA SCREENING 1967 COLON MONITORING 1967 COLONOSCOPY - COLON CA SCREENING 1967 CT COLONOGRAPHY - COLON CA SCREENING 1967 Colorectal Cancer Screening 1967 FIT - COLON CA SCREENING 1967 FLEX SIG - COLON CA SCREENING 1967 LIPID TESTING 1967 MAMMOGRAM 1967 PAP SMEAR 1967 HIV SCREENING 10/24/1982 HEPATITIS C SCREENING 10/20/1985 DTAP/TDAP/TD VACCINES (1 - Tdap) 10/24/1986 HEPATITIS B VACCINE (1 of 3 - 19+ 3-dose series) 10/24/1986 PNEUMOCOCCAL VACCINE 50+ (1 of 1 - PCV) 10/24/2017 ZOSTER VACCINE (1 of 2) 10/24/2017 COVID-19 VACCINE ( - 2023-2 5 season) 2023 DEPRESSION SCREENING 02/21/2024 INFLUENZA VACCINE (Season Ended) 2024 10/25/19 19 HIB VACCINE Aged Out No longer eligi ble based on patient's age to complete this topic HPV VACCINE Aged Out No longer eligi ble based on patient's age to complete this topic MENINGOCOCCAL (Group B) VACC INE SHARED DECISION-MAKING Aged Out No longer eligibl e based on patient's age to complete this topic MENINGOCOCCAL GROUPS A/C/Y/W VACCINE Aged Out No longer eligible b ased on patient's age to complete this topic PNEUMOCOCCAL VACCINE Aged Out No long er eligible based on patient's age to complete this topic
--- OUTSIDE RECORDS SUMMARY | 2024-05-30 12:31 | XMS_ITS | Clinical Summary ---
Author Organization [facility] Address [address] [place] [address] Phone Care Team Providers Care Drill Operator Pneumatic Name Role Phone Bettina Finley MD Primary Care Provider [phone] Michael Patel MD Unavailable Allergies Active Allergy Reactions Criticality Noted Date Comments Amoxicillin Hives 05/21/2015 Esomeprazole Itching Low 05/03/2021 Medications omeprazole (PRILOSEC) 40 MG CAPSULE DELAYED RELEASE Take 1 Cap by mouth 2 times daily (before meals). 180 Cap 3 04/29/19 20 Active albuterol 108 (90 Base) MCG/ACT Aerosol Solution albuterol sulfate HFA 90 mcg/actuation aerosol inhaler Active fluticasone (FLOVENT HFA) 220 MCG/ACT Aerosol take 1 Puff by inhalation as needed. Active acetaminophen (TYLENOL) 325 MG Tablet Take 1 Tablet by mouth every 6 hours as needed for Fever (for temperature greater than 100.4 F.). Do not exceed 4000 mg of acetaminophen in 24 hour from all sources. 09/30/19 23 Active HYDROcodone-Acetam inophen 7.5-325 MG/15ML SolutionIndication s:S/P laparoscopic fundoplication Take 15 mL by mouth every 6 hours as needed for Mild or more severe pain. 473 mL 11/02/19 23 Active dicyclomine (BENTYL) 20 MG Tablet Take 1 Tablet by mouth every 6 hours. 30 Tablet 11/12/19 23 Active ondansetron (ZOFRAN-ODT) 4 MG TABLET DISPERSIBLE DISSOLVE 1 TABLET ON THE TONGUE EVERY 6 HOURS FOR 14 DAYS 56 Tablet 12/04/19 23 Active Active Problems Problem Noted Date Diagnosed Date Hiatal hernia with GERD 09/27/2022 Hiatal hernia 09/27/2022 Hematemesis with nausea 05/21/2015 Generalized abdominal pain 05/21/2015 GERD (gastroesophageal reflux disease) 6 Family History Medical History Relation Name Comments Other-comment Daughter 1 obesity Thyroid Disease Daughter 1 Asthma Daughter 2 Heart Attack Father Heart Disease Father Cerebral Anuerysm Mother Heart Disease Mother Hypertension Paternal Grandmother Relation Name Status Comments Daughter 1 Alive Daughter 2 Alive Father Alive Mother Paternal Grandmother Social History Tobacco Use Types Packs/Day Years [...] 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 Not on file Not on file Last Filed Vital Signs Vital Sign Reading Time Taken Comments Blood Pressure 149/90 11/11/2022 11:18 AM CDT Pulse 60 11/11/2022 11:18 AM CDT Temperature 36.7 C (98.1 F) 11/11/2022 11:18 AM CDT Respiratory Rate 17 11/11/2022 11:18 AM CDT Oxygen Saturation 100% 11/11/2022 11:18 AM CDT Inhaled Oxygen Concentration - - Weight 94 kg (207 lb 3.7 oz) 11/11/2022 8:18 AM CDT Height 165.1 cm (5' 5 ) 11/11/2022 8:18 AM CDT Body Mass Index 34.49 11/11/2022 8:18 AM CDT Plan of Treatment Health Maintenance Due Date Last Done Comments Hepatitis C Virus (HCV) Screening 1965 Mammogram 1967 Hepatitis B Immunization (1 of 3 - 19+ 3-dose series) 10/24/1986 Cologuard 10/24/2017 Immunochemical Fecal Occult Blood 10/24/2017 Pneumococcal Immunization (5 0+ years) (1 of 1 - PCV) 10/24/2017 Zoster Immunization (1 of 2) 10/24/2017 Colonoscopy 09/09/2023 09/08/2022, 09/08/2022 Colorectal Cancer Screening 09/09/2023 SARS-COV-2 Immunization (1 - 2023- season) 2023 Influenza Immunization (Seas on Ended) 2024 10/24/2018 Respiratory Syncytial Virus (RSV) Immunization (Adult) (1 - 1-dose 75+ series) 10/24/2042 09/08/2022 DTaP/Tdap/Td Immunization Discontinued 03/21/2019 TdaP Immunization Completed 03/21/2019 Meningococcal Immunization (ACWY) Aged Out No longer eligible based on patient's age to complete this topic Rotavirus Immunization Aged Out No lo nger eligible based on patient's age to complete this topic Insurance MEDICAID [employer] Advance Directives * Full Code (Latest Code Status on File) Date Activated Date Inactivated Comments 09/27/2022 12:15 PM 09/27/2022 2:25 PM CPR-Full Desi tment: FULL ARREST: Attempt Resuscitation/CPR wit intubation and mechanical ventilation. PRE-ARREST: Use entire range of life support measures to stabilize the patient. * Full Code Date Activated Date Inactivated Comments 05/21/2015 1:35 PM 05/22/2015 8:03 PM Full Code: FULL ARREST: Attempt Resuscitation/CPR and use intubation and mechanical ventilation as indicated. PRE-ARREST: Use all measures to stabilize patient. Care Teams Drill Operator Pneumatic Relationship Specialty Start Date End Date Bettina Finley MD [address] [place] [address] [address] [place] [address] PCP - General Family Medicine 02/13/22 Michael Patel MD [address] [facility] [address] [place] [address] Consulting Physician Colon and Rectal Surgery 08/19/22
--- OUTSIDE RECORDS SUMMARY | 2024-05-30 12:31 | XMS_ITS | Encounter Summary ---
Author Organization [facility] Address [address] [facility] [place] [address] Phone Care Team Providers Care Transfer Station Attendant Name Role Phone Bettina Finley MD Primary Care Provider Michael Patel MD Unavailable Reason for Visit * Reason Comments Medication Refill Encounter Details Date Type Department Care Team (Late st Contact Info) Description 02/15/[address] 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 Will send message thru [employer] to see if patient willrespond. NIGHT CASHIER * Telephone Encounter - Yani Avalos RN - 02/16/2024 1:42 PM OVERNIGHT CASHIER Per nursing clinical judgement, provider to review and approve the medication(s) order(s) if appropriate. Patient has not been seen in the office since 12/03/22 Requested Prescriptions Pending Prescriptions Disp Refills ondansetron (ZOFRAN-ODT) 4 MG TABLET DISPERSIBLE [Pharmacy Med Name: ONDANSETRON ODT 4MG TABLETS] 56 Tablet 0 Sig: DISSOLVE 1 TABLET ON THE TONGUE EVERY 6 HOURS FOR 14 DAYS There is no refill protocol information for this order NIGHT CASHIER documented in this encounter Plan of Treatment Not on file documented as of this encounter Visit Diagnoses Not on filedocumented in this encounter Care Teams Transfer Station Attendant Relationship Specialty Start Date End Date Bettina Finley MD [address] [facility] [address] [place] [address] PCP - General Family Medicine 02/13/22 Michael Patel MD [address] [facility] [address] [place] [address] Consulting Physician Colon and Rectal Surgery 08/19/22 documented as of this encounter
--- OUTSIDE RECORDS SUMMARY | 2024-05-30 12:33 | XMS_ITS | Continuity of Care Document ---
Author Organization [facility] Address [address] [employer] [facility] [place] [address] Phone Care Team Providers Care Investigative Agent Name Role Phone Erickson Liao MD Unavailable [...] - Active Procedures Procedure Date OFFICE/OUTPATIENT VISIT, [facility] Advance Directives Directive Yes / No Effective Date File Name No Information Encounters Encounter Description Practice Location Reason(s) For Visit Diagnoses Date Provider Providers Copied on Encounter OFFICE/OUTPA TIENT VISIT, [facility], [address] [facility] [place], [id number], [place] tel:[phone] [facility] DM (chief complaint) GERD1 (chief complaint) HTN (chief complaint) insomnia1 (chief complaint) Type 2 diabetes mellitus without complicationsEssent ial (primary) hypertensionEsophag itisOther insomnia [address]end[address]. [address], [address], [place], [place], [id number] , [place]. tel:[phone] Family History Family Member Type Diagnosis Age At Onset Mother Problem breast CA 62 Father Problem Diabetes mellitus Mother Problem of aneurysm of brain 65 Father Problem Hypertension Payers Payer name Insurance type Covered libertarian ID Authoramaliaa nohemy(s) [facility] [id number] Social History Type Description Quantity Date Captured [...] de nies any chest pain or headache. DM Pt has DM Pt is on basaglar 27 units BID and ozempic 0.25 mg weekly and her glucose is around high 300 and low 400 all the time. Pt denies any polyuria, polydipsia Pt denies any vision change. Pt has not seen PCP for close to one year GERD1 Pt has history o f HH. s/p HH surgery .pt had EGD done one year ago with dilation. Pt does have reflux esophagitis without hall Pt denies any GERD Pt feels nausea sometimes. Pt denies any stevo GERD and she is not on any PPI Pt states that she has some dysphagia sometimes . insomnia1 Pt has chronic i nsomnia Pt doing ok with trazodone Instructions Date Instruction Additional Infor mation No Information Assessments Type Assessment Date assessment Type 2 diabetes mellitus without complications assessment Essential (primary) hypertension assessment Esophagitis assessment Other insomnia Mental Status Date Cognitive Assessment Orientation - [place] ed to time, place, person, situation.
== END 2024-05-30 12:54 | disposition home or self-care (01) ==
PROVIDERS: Emergency Provider Registered Nurse
DX: S62.632A Displaced fracture of distal phalanx of right middle finger, initial encounter for closed fracture (principal); W22.09XA Striking against other stationary object, initial encounter; E11.9 Type 2 diabetes mellitus without complications; J44.9 Chronic obstructive pulmonary disease, unspecified; K21.9 Gastro-esophageal reflux disease without esophagitis
CPT/HCPCS: 29130; 73140; 99214; G0463